=== PATIENT | male | born 1930 | race Caucasian/White ===

== ENCOUNTER 2016-07-29 17:21 | Inpatient (IN) ==
[2016-07-29] MEDS ORDERED: ONDANSETRON 4 MG/2 ML VIAL IV STA (17:48)
[2016-07-29] MEDS ORDERED: ONDANSETRON 4 MG/2 ML VIAL ONE (17:50)
--- NOTE | 2016-07-29 17:52 | EKG Report ---
Stationary ECG Study [facility] Test Date: 07/29/2016 5:53:09 PM Pat Name: EARLENE HAMILTON Department: Room: Gender: M Endocrinologist: : 1930 Requested by: Gerardo Ibrahim Order Number: [id number] Reading MD: SAIRA PADRON Intervals [place] Rate: 109 P: 57 [place]: 140 QRS: 74 QRSD: 94 T: 72 QT: 298 QTc: 362 Interpretive Statements SINUS TACHYCARDIA WITH OCCASIONAL SUPRAVENTRICULAR PREMATURE COMPLEXES NONSPECIFIC T-WAVE ABNORMALITY ABNORMAL RHYTHM ECG Electronically Signed On 08-02-16 08:14:16 CDT by SAIRA PADRON [email or web address]
--- NOTE | 2016-07-29 18:02 | Emergency Department Note ---
Loreta Adkins Hilary, am scribing for, and in the presence of, Gerardo Baron MD 17:55. Tod Adkins Charles R, MD, personally performed the services described in this documentation, ascribed by Harika Kan in my presence, and it is both accurate and complete [id number] . Arrival - Arrival Chief Complaint: Non-Specific Stated Complaint: Low Platelets ED Nursing Triage Note: Transfer from [facility] for low platelets and flu s/s x 4- 5 days Mode of Arrival: Stretcher Limitations: No Limitations Source: Patient, RN Notes Reviewed Time Seen by Provider: 07/29/16 17:39 - History of Present Illness HPI Narrative: Pt is a 85 y/o white male brought to the ED via EMS from [facility] for c/o body aches which onset 6 days ago. Pt confirms diarrhea, vomiting and weakness but denies SOB, or Chest pain. [facility] reports he has low platelets. Pt believes he has the flu and no other complaints or problems stated in the ED. Onset (ago): day(s) Allergies/Adverse Reactions: Allergies Allergy/AdvReac Type Severity Reaction Status Date / Time No Known Allergies Allergy Verified 03/17/16 06:27 Home Medications: Home Medications Medication Instructions Recorded Confirmed Type No Known Home Medications [No 03/15/16 03/17/16 History Known Home Medications] Review of System - Review of System 12 point system: reviewed and no additional remarkable complaints except as stated - Review of System Constitutional: Present: fever (low fever), weakness (body aches) Respiratory: Absent: respiratory distress Cardiovascular: Absent: chest pain Gastrointestinal: Present: nausea, vomiting, diarrhea. 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, glasses) Endocrine: History of: Dyslipidemia (pt states he is not taking medication) Respiratory: History of: Bronchitis (chronic), Obstructive Sleep Apnea (cpap) Gastrointestinal: History of: GERD Musculoskeletal: History of: Musculoskeletal Problems (degenerative arthritis) Other: History of: Cancer (skin cancer face) No history of: Anesthesia Reactions - Surgical History HEENT Surgeries: Surgical HX of: Eye Surgery (COS) Abdominal Surgeries: Surgical HX of: Cholecystectomy (05/02/15), Colonoscopy, EGD Orthopedic Surgeries: Surgical HX of;: Orthopedic Surgery (carpal tunnel bilateral), Total Hip Replacement (right 2007) - Family History Family History: Reports;: Family Heart Disease (father) - Social History Smoking Status: Never smoker Frequency of Alcohol Use: None Type of Drug Use: None Exam Vital Signs: Vital Signs Temperature 99.9 F H 07/29/16 17:29 Pulse Rate 106 H 07/29/16 18:30 Respiratory Rate 27 H 07/29/16 18:00 Blood Pressure 112/62 07/29/16 18:30 O2 Sat by Pulse Oximetry 94 L 07/29/16 18:30 - General General appearance: alert, in no apparent distress, other (Ill appearing male) - Head Head exam: Present: atraumatic, normocephalic - Eye Eye exam: Present: normal appearance, PERRL, EOMI, nystagmus (slight nystagmus) - ENT ENT exam: Present: mucous membranes moist, TM's normal bilaterally, other (Oral thrush on his top palate and tongue). Absent: mucous membranes dry - Neck Neck exam: Present: full ROM, trachea midline. Absent: tenderness - Chest Chest inspection: Present: symmetric chest wall rise. Absent: tenderness - Respiratory Respiratory exam: Present: normal lung sounds bilaterally. Absent: respiratory distress - Cardiovascular Cardiovascular exam: Present: normal rhythm, tachycardia, normal heart sounds - Rectal Exam Rectal exam: Present: heme (-) stool - Extremities Exam Extremities exam: Present: full ROM. Absent: tenderness - Back Exam Back exam: Present: full ROM. Absent: tenderness - Neurological Exam Neurological exam: Present: alert, oriented X3, CN II-XII intact. Absent: motor sensory deficit - Psychiatric Psychiatric exam: Present: normal affect, normal mood - Skin Skin exam: Present: warm, dry, intact, normal color. Absent: rash Course - Consultations Consultation #1: Hospitalist will admit patient Time: 18:01 Results - Labs CBC & BMP: 07/29/16 16:01 07/29/16 16:01 Lab Results: I have reviewed the patients labs Labs: All labs reviewed from previous ER Critical Care Time Critical Care Time: Yes Total Critical Care Time: 60 Disposition Clinical Impression: Fever, Toxoplasma chorioretinitis, left, Acid reflux, Hyponatremia, Oral thrush , Fatigue, Nausea & vomiting, Sepsis, Hypotension, Thrombocytopenia, Acute ITP, Flulike illness, Left bibasilar pneumonia, Strep pharyngitis Case discussed with: patient Disposition: Still a Patient Condition: Guarded Time of Disposition: 18:00
--- NOTE | 2016-07-29 18:10 | XRay Report ---
History: Fever and weakness Date: 07/29/2016 Study: Chest x-ray AP portable Comparison exam: November 21, 2015 chest x-ray The cardiomediastinal silhouette is unchanged. The pulmonary vasculature is not engorged. There is mild patchy pneumonia in the left lung base. The lungs are otherwise generally clear. There is no layering pleural effusion. The osseous structures are unchanged. Impression: Left basilar pneumonia PROCEDURE INTERPRETED AT [facility] DEPARTMENT OF RADIOLOGY Final Report Signed by: Dr. Meseret Moya
[2016-07-29] MEDS ORDERED: cefTRIAXone 1,000 MG in SODIUM CHLORIDE 0.9% 100 ML IV STA (18:21)
[2016-07-29] MEDS ORDERED: cefTRIAXone 1,000 MG VIAL ONE (18:22)
[2016-07-29] MEDS ORDERED: SODIUM CHLORIDE 0.9% 100 ML IV ONE (18:23)
[2016-07-29 18:27] LABS: Basophils % 0.1 % (0.0-0.8); Hematocrit 38.7 VOL% (42.0-52.0); Hemoglobin 13.2 GM/DL (14.0-18.0); Immature Granulocytes % 1.1 %; Immature Granulocytes Absolute 0.08 #; Lymphocytes # 0.6 10*3/uL (1.4-4.0); Lymphocytes % 8.6 % (21.2-54.2); Mean Corpuscular HGB Conc 34.1 GM/DL (32-36); Mean Corpuscular Hemoglobin 32 PG (27-34); Mean Corpuscular Volume 92.8 FL (87-102); Monocytes # 0.1 10*3/uL (0.11-0.8); Monocytes % 1.6 % (1.7-12.7); Neutrophils # 6.6 10*3/uL (1.4-7.4); Neutrophils % 88.6 % (38.7-73.9); Red Blood Count 4.17 MC/CUMM (3.8-5.5); Red Cell Distribution Width 13.2 % (9.3-17.3); White Blood Count 7.4 T/CUMM (4-12)
[2016-07-29 18:33] LABS: Platelet Count 28 T/CUMM (130-400)
[2016-07-29 18:35] LABS: Apearance,Urine Slightly Hazy (Clear); Bilirubin,Urine Negative (Negative); Blood, Urine Small mg/dL (Negative); Glucose,Urine (UA) Negative (Negative); Granular Casts,Urine 3 /LPF (0-1); Hyaline Casts,Urine 1 /LPF (0-3); Ketones,Urine 5 mg/dL (Negative); Mucus,Urine Occasional /LPF (Occasional); Nitrite,Urine Negative (Negative); Protein,Urine 30 MG/DL; RBC,Urine 1 /HPF (0-4); Squamous Epithelial Cell,Urine Occasional /HPF (0-10); Urine Color Yellow (Yellow); Urine Specific Gravity 1.014 (1.001-1.035); Urine Urobilinogen < 2.0 EU/DL (0.2-1.0); WBC,Urine 1 /HPF (0-6)
--- NOTE | 2016-07-29 18:36 | Hospitalist History & Physical ---
Assessment and Plan (1) Toxoplasma chorioretinitis, left Status: Chronic Current Visit: Yes (2) Acid reflux Status: Chronic Current Visit: Yes (3) Hyponatremia Status: Acute Current Visit: Yes (4) Candidiasis of mouth Status: Acute Current Visit: Yes (5) Fatigue Status: Acute Current Visit: Yes (6) Hypotension Status: Acute Current Visit: Yes (7) Thrombocytopenia Status: Acute Assessment and plan: Our plan for this patient will be admission for the to the ICU at least overnight. My concern is that he is septic. His chest x-ray consistent with a left basilar pneumonia. We will repeat labs in the morning. My suspicion is the thrombocytopenia is associated with his Bactrim use. He has gastroenteritis type symptoms we will do stool cultures for that. Will treat with IV antibiotics. If his platelets do not increase then I would recommend that heme onc be consulted in the morning. Patient has a bump lactic acid level of 2.9 we will repeat that in 6 hours. Patient found to be positive for strep. Patient will receive a Bicillin shot in the emergency room. He patient received a dose of Rocephin in the emergency room and I am starting him on Levaquin and continuing the Rocephin. We will also get Dr. stover to see the patient while he is here. Patient has a toxoplasmosis infection of his eye. Current Visit: Yes (8) Pneumonia Status: Acute Current Visit: Yes History of Present Illness Chief complaint: "I feel like shit" History of present illness: Mr. Tirado is a 85 year old male with past medical history significant for toxoplasmosis of left eye hiatal hernia and reflux he has been receiving Bactrim for 3 weeks. Patient reports that he has had fever. He has had bad diarrhea for the past 3 days. He has had no energy. [place] to be thrombocytopenic. He was sent here for further evaluation. Patient reported that he felt like he had the flu with weakness and body aches. I was consulted to admit him to the emergency room. 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, glasses) Endocrine: History of: Dyslipidemia (pt states he is not taking medication) Respiratory: History of: Bronchitis (chronic), Obstructive Sleep Apnea (cpap) Gastrointestinal: History of: GERD Musculoskeletal: History of: Musculoskeletal Problems (degenerative arthritis) Other: History of: Cancer (skin cancer face) No history of: Anesthesia Reactions - Surgical History HEENT Surgeries: Surgical HX of: Eye Surgery (COS) Abdominal Surgeries: Surgical HX of: Cholecystectomy (05/02/15), Colonoscopy, EGD Orthopedic Surgeries: Surgical HX of;: Orthopedic Surgery (carpal tunnel bilateral), Total Hip Replacement (right 2006) - Family History Family History: Reports;: Family Heart Disease (father) - Social History Smoking Status: Never smoker Frequency of Alcohol Use: None Type of Drug Use: None 12 point system: reviewed and no additional remarkable complaints except as stated Exam - Constitutional Vitals: Period Temp Pulse Resp BP Sys/Hester Pulse Ox Last 24 Hr 99.9 F-99.9 F 106-113 20-27 113-114/58-76 95-97 General appearance: no acute distress - Head Head exam: Present: normocephalic, atraumatic - Eye Eye exam: Present: EOMI Pupils: Present: VERNA - ENT ENT exam: Present: other (Some oral thrush appreciated) - Neck Neck exam: Present: normal inspection - Respiratory Respiratory exam: Present: clear to auscultation bilaterally - Cardiovascular Cardiovascular exam: Present: tachycardia - GI/Abdominal GI/Abdominal exam: Present: normal bowel sounds - Extremities Exam Extremities exam: Present: normal inspection - Back Exam Back exam: Present: normal inspection - Neurological Exam Neurological exam: Present: alert, oriented X3 - Psychiatric Psychiatric exam: Present: normal affect - Skin Skin exam: Present: normal color Results - Labs CBC & BMP: 07/29/16 16:01 07/29/16 16:01 Labs: Labs from outside facility white count 9.3 hemoglobin 14.4 hematocrit 42.4 platelets 25 BUN 26 calcium 8.1 creatinine 1.24 carbon dioxide 24 glucose 139 potassium 4.1 sodium 124 chloride 95 urinalysis was cloudy dark yellow negative leukocyte esterase negative nitrites
[2016-07-29] MEDS ORDERED: ALBUTEROL 2.5 MG/3 ML NEB RESP TX PRN ×2 (18:43)
[2016-07-29] MEDS ORDERED: ONDANSETRON 4 MG/2 ML VIAL IV PRN (18:43)
[2016-07-29 18:47] LABS: Lactic Acid 2.9 MMOL/L (0.4-2.0)
[2016-07-29 18:52] LABS: Albumin 2.5 G/DL (3.4-5.0); Bilirubin,Total 0.9 MG/DL (0.2-1.0); Calcium 7.2 MG/DL (8.5-10.1); Magnesium 2.2 MG/DL (1.8-2.4); Osmolality,Calculated 270.4 MOS/KG (273-304); Potassium 3.8 MMOL/L (3.5-5.1); Total Protein 5.1 G/DL (6.4-8.3)
[2016-07-29] MEDS ORDERED: PENICILLIN G BENZATHINE 1,200,000 UNIT/2 ML SYRINGE IM STA (19:20)
[2016-07-29 19:30] LABS: Protein/Creatinine Ratio,Urine 0.9 RATIO
[2016-07-29] MEDS ORDERED: LEVOFLOXACIN INJ 150 ML IV ONE (20:06)
[2016-07-29] MEDS ORDERED: PENICILLIN G BENZATHINE 1,200,000 UNIT/2 ML SYRINGE IM ONE (20:07)
[2016-07-29] MEDS: SODIUM CHLORIDE 0.9% 1,000 ML IV SCH (20:09)
[2016-07-29] MEDS: LEVOFLOXACIN INJ 750 MG in PREMIX 1 EACH IV SCH (20:13)
[2016-07-29 20:55] LABS: Band Neutrophils 2 % (0-10); Lymphocytes 5 % (20-55); Segmented Neutrophils 91 % (50-85); Total Cells Counted 100
[2016-07-29 20:56] LABS: Platelet Estimate Decreased
[2016-07-29] MEDS ORDERED: PANTOPRAZOLE 40 MG VIAL IV SCH (21:00)
[2016-07-29] MEDS: ALBUTEROL/IPRATROPIUM 3 ML NEB RESP TX SCH (21:13)
[2016-07-29] MEDS ORDERED: NYSTATIN 500,000 UNIT/5 ML UDCUP ONE (21:15)
[2016-07-29] MEDS ORDERED: PANTOPRAZOLE 40 MG VIAL IV ONE (21:15)
[2016-07-29] MEDS: NYSTATIN 500,000 UNIT/5 ML UDCUP SWISH/SWAL SCH (21:20)
[2016-07-30] MEDS: ALBUTEROL/IPRATROPIUM 3 ML NEB RESP TX SCH ×4 (00:37→19:14)
[2016-07-30] MEDS: SODIUM CHLORIDE 0.9% 1,000 ML IV SCH ×3 (05:45→23:34)
[2016-07-30 06:18] LABS: Basophils % 0.2 % (0.0-0.8); Hematocrit 36.4 VOL% (42.0-52.0); Hemoglobin 12.5 GM/DL (14.0-18.0); Immature Granulocytes Absolute 0.06 #; Lymphocytes # 0.5 10*3/uL (1.4-4.0); Lymphocytes % 8.3 % (21.2-54.2); Mean Corpuscular HGB Conc 34.3 GM/DL (32-36); Mean Corpuscular Hemoglobin 32 PG (27-34); Mean Corpuscular Volume 93.8 FL (87-102); Monocytes # 0.1 10*3/uL (0.11-0.8); Monocytes % 2.1 % (1.7-12.7); Neutrophils # 5.5 10*3/uL (1.4-7.4); Neutrophils % 88.4 % (38.7-73.9); Red Blood Count 3.88 MC/CUMM (3.8-5.5); Red Cell Distribution Width 13.5 % (9.3-17.3); White Blood Count 6.3 T/CUMM (4-12)
[2016-07-30 06:29] LABS: Platelet Count 28 T/CUMM (130-400)
[2016-07-30 06:43] LABS: Band Neutrophils 48 % (0-10); Hypochromasia 1+; Lymphocytes 4 % (20-55); Myelocytes 1 %; Platelet Estimate Decreased; Segmented Neutrophils 46 % (50-85); Total Cells Counted 100
[2016-07-30] MEDS ORDERED: NYSTATIN 500,000 UNIT/5 ML UDCUP ONE (09:56)
[2016-07-30] MEDS ORDERED: PANTOPRAZOLE 40 MG TABLET PO ONE (09:57)
[2016-07-30] MEDS ORDERED: TAMSULOSIN 0.4 MG CAPSULE PO ONE (09:57)
[2016-07-30] MEDS: PANTOPRAZOLE 40 MG TABLET PO SCH (09:59)
[2016-07-30] MEDS: TAMSULOSIN 0.4 MG CAPSULE PO SCH (09:59)
[2016-07-30] MEDS: NYSTATIN 500,000 UNIT/5 ML UDCUP SWISH/SWAL SCH ×4 (10:00→21:43)
[2016-07-30 11:28] LABS: Albumin 2.3 G/DL (3.4-5.0); Bilirubin,Total 0.8 MG/DL (0.2-1.0); Osmolality,Calculated 272.4 MOS/KG (273-304); Potassium 3.1 MMOL/L (3.5-5.1); Total Protein 4.8 G/DL (6.4-8.3)
--- NOTE | 2016-07-30 11:50 | Hospitalist Progress Note ---
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 Current Visit: Yes (2) Sepsis Status: Acute Assessment and plan: Is presently being treated with intravenous normal saline, intravenous levofloxacin, and intravenous ceftriaxone. His blood pressure is 130/63 and heart rate 92/min. Current Visit: Yes (3) Thrombocytopenia Status: Acute Assessment and plan: His platelet count is 28,000. Hematology has been consulted. Current Visit: Yes (4) Pneumonia Status: Acute Assessment and plan: See above. Current Visit: Yes Qualifiers: Pneumonia type: due to unspecified organism Hospitalist: Subjective Interval history: Mr. Tirado was admitted to the hospital last night with pneumonia, sepsis, and thrombocytopenia. He has a previously known history of thrombocytopenia. On admission his platelet count was 28,000. He was treated during the night with intravenous normal saline,Intravenous levofloxacin, and intravenous ceftriaxone. Hematology has been consulted for assistance in management of his thrombocytopenia. Exam - Constitutional Vitals: Period Temp Pulse Resp BP Sys/Hester Pulse Ox Last 24 Hr 92-113 18-30 104-130/55-82 91-100 General appearance: no acute distress - Head Head exam: Present: normal inspection, normocephalic - Eye Eye exam: Present: EOMI Pupils: Present: VERNA - Neck Neck exam: Present: normal inspection - Respiratory Respiratory exam: Present: rhonchi - Cardiovascular Cardiovascular exam: Present: regular rate and rhythm - GI/Abdominal GI/Abdominal exam: Present: normal bowel sounds, soft - Extremities Exam Extremities exam: Present: normal inspection - Neurological Exam Neurological exam: Present: alert, oriented X3 - Psychiatric Psychiatric exam: Present: normal affect, normal mood - Skin Skin exam: Present: normal color, warm, dry Results - Labs CBC & BMP: 07/30/16 03:21 07/30/16 10:20 Quality Measures - VTE Contraindication to Pharmacological VTE Prophylaxis: Thrombocytopenia
[2016-07-30 11:58] LABS: Hematocrit 37.7 VOL% (42.0-52.0); Hemoglobin 12.9 GM/DL (14.0-18.0); Immature Granulocytes % 1.1 %; Immature Granulocytes Absolute 0.06 #; Lymphocytes # 0.4 10*3/uL (1.4-4.0); Lymphocytes % 7.8 % (21.2-54.2); Mean Corpuscular HGB Conc 34.2 GM/DL (32-36); Mean Corpuscular Hemoglobin 32 PG (27-34); Mean Corpuscular Volume 92.2 FL (87-102); Mean Platelet Volume 10.5 FL (9.6-12.0); Monocytes # 0.1 10*3/uL (0.11-0.8); Monocytes % 1.8 % (1.7-12.7); Neutrophils # 4.9 10*3/uL (1.4-7.4); Neutrophils % 89.3 % (38.7-73.9); Red Blood Count 4.09 MC/CUMM (3.8-5.5); Red Cell Distribution Width 13.5 % (9.3-17.3); White Blood Count 5.5 T/CUMM (4-12)
[2016-07-30 12:08] LABS: Platelet Count 30 T/CUMM (130-400)
[2016-07-30 12:24] LABS: Band Neutrophils 5 % (0-10); Lymphocytes 3 % (20-55); Segmented Neutrophils 91 % (50-85); Total Cells Counted 100
[2016-07-30 12:27] LABS: Hypochromasia 1+; Microcytosis Slight; Platelet Estimate Decreased
--- NOTE | 2016-07-30 13:19 | Anesthesia Post-Op ---
Anesthesia Post OP - Post Ansesthetic Evaluation Patient seen in post op: Yes Resp: within normal limits CV: within normal limits Mental: within normal limits Temp: within normal limits [id number]: within normal limits Nausea and Vomiting: within normal limits Pain: within normal limits
[2016-07-30 16:06] LABS: Amorphous Crystals,Urine Occasional /HPF (Few); Apearance,Urine CLOUDY (Clear); Bilirubin,Urine Negative (Negative); Blood, Urine Moderate mg/dL (Negative); Glucose,Urine (UA) Negative (Negative); Ketones,Urine 5 mg/dL (Negative); Mucus,Urine Occasional /LPF (Occasional); Nitrite,Urine Negative (Negative); Protein,Urine 30 MG/DL; RBC,Urine 40 /HPF (0-4); Urine Color Yellow (Yellow); Urine Specific Gravity 1.011 (1.001-1.035); Urine Urobilinogen < 2.0 EU/DL (0.2-1.0); WBC,Urine 3 /HPF (0-6)
[2016-07-30] MEDS ORDERED: ZALEPLON 5 MG CAPSULE PO PRN (19:22)
[2016-07-30] MEDS: LEVOFLOXACIN INJ 750 MG in PREMIX 1 EACH IV SCH (20:29)
[2016-07-30] MEDS: ACETAMINOPHEN 325 MG TABLET PO PRN (20:32)
[2016-07-30] MEDS: FAMOTIDINE 20 MG TABLET PO SCH (21:43)
[2016-07-30] MEDS: cefTRIAXone 1,000 MG in SODIUM CHLORIDE 0.9% 100 ML IV SCH (21:43)
[2016-07-30 22:03] LABS: INR 1.4; PT Patient Result 14.6 SECS
[2016-07-30 22:05] LABS: Partial Thromboplastin Time 46.4 SECS (0-40)
[2016-07-30] MEDS ORDERED: METOPROLOL SUCCINATE XL 50 MG TABLET PO ONE (23:22)
[2016-07-31] MEDS: ALBUTEROL/IPRATROPIUM 3 ML NEB RESP TX SCH ×4 (01:31→19:47)
[2016-07-31] MEDS: SODIUM CHLORIDE 0.9% 1,000 ML IV SCH ×4 (04:26→17:26)
[2016-07-31 04:40] LABS: Hematocrit 34.6 VOL% (42.0-52.0); Hemoglobin 11.8 GM/DL (14.0-18.0); Immature Granulocytes % 1.5 %; Immature Granulocytes Absolute 0.05 #; Lymphocytes # 0.3 10*3/uL (1.4-4.0); Lymphocytes % 8.1 % (21.2-54.2); Mean Corpuscular HGB Conc 34.1 GM/DL (32-36); Mean Corpuscular Hemoglobin 31 PG (27-34); Mean Corpuscular Volume 91.3 FL (87-102); Mean Platelet Volume 10.7 FL (9.6-12.0); Monocytes # 0.1 10*3/uL (0.11-0.8); Monocytes % 2.3 % (1.7-12.7); Neutrophils % 88.1 % (38.7-73.9); Red Blood Count 3.79 MC/CUMM (3.8-5.5); Red Cell Distribution Width 13.6 % (9.3-17.3); White Blood Count 3.4 T/CUMM (4-12)
[2016-07-31 04:58] LABS: Platelet Count 17 T/CUMM (130-400)
[2016-07-31 05:10] LABS: Calcium 7.1 MG/DL (8.5-10.1); Osmolality,Calculated 269.2 MOS/KG (273-304); Potassium 3.2 MMOL/L (3.5-5.1)
[2016-07-31] MEDS ORDERED: MAGNESIUM SULF RIDER 4 GM in PREMIX 1 EACH IV PRN (05:30)
[2016-07-31] MEDS ORDERED: MAGNESIUM SULF RIDER 2 GM in PREMIX 1 EACH IV PRN (05:30)
[2016-07-31 05:33] LABS: Band Neutrophils 6 % (0-10); Burr Cells Slight; Hypochromasia Slight; Lymphocytes 5 % (20-55); Platelet Estimate Decreased; Segmented Neutrophils 89 % (50-85); Total Cells Counted 100
[2016-07-31 05:34] LABS: Microcytosis Slight
[2016-07-31] MEDS: POTASSIUM CHLORIDE RIDER 10 MEQ in PREMIX 1 EACH IV PRN ×7 (05:53→23:29)
--- NOTE | 2016-07-31 07:25 | EKG Report ---
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
[2016-07-31 09:02] LABS: INR 1.3; PT Patient Result 14.2 SECS
[2016-07-31 09:11] LABS: Partial Thromboplastin Time 48.7 SECS (0-40)
[2016-07-31] MEDS: NYSTATIN 500,000 UNIT/5 ML UDCUP SWISH/SWAL SCH ×4 (09:18→20:07)
[2016-07-31] MEDS: PANTOPRAZOLE 40 MG TABLET PO SCH (09:18)
[2016-07-31] MEDS: TAMSULOSIN 0.4 MG CAPSULE PO SCH (09:18)
[2016-07-31] MEDS: METOPROLOL SUCCINATE XL 25 MG TABLET PO SCH ×2 (09:18→21:43)
[2016-07-31 10:12] LABS: Hematocrit 36.7 VOL% (42.0-52.0); Hemoglobin 12.2 GM/DL (14.0-18.0); Immature Granulocytes % 1.2 %; Immature Granulocytes Absolute 0.04 #; Lymphocytes # 0.3 10*3/uL (1.4-4.0); Lymphocytes % 9.8 % (21.2-54.2); Mean Corpuscular HGB Conc 33.2 GM/DL (32-36); Mean Corpuscular Hemoglobin 32 PG (27-34); Mean Corpuscular Volume 95.1 FL (87-102); Monocytes # 0.1 10*3/uL (0.11-0.8); Monocytes % 2.8 % (1.7-12.7); Neutrophils # 2.8 10*3/uL (1.4-7.4); Neutrophils % 86.2 % (38.7-73.9); Red Blood Count 3.86 MC/CUMM (3.8-5.5); Red Cell Distribution Width 13.9 % (9.3-17.3); White Blood Count 3.3 T/CUMM (4-12)
[2016-07-31 10:15] LABS: Platelet Count 17 T/CUMM (130-400)
[2016-07-31 10:35] LABS: Band Neutrophils 8 % (0-10); Lymphocytes 4 % (20-55); Platelet Estimate Decreased; Segmented Neutrophils 86 % (50-85); Total Cells Counted 100
[2016-07-31 10:36] LABS: Hypochromasia Slight; Microcytosis Slight
--- NOTE | 2016-07-31 10:37 | Oncology Consult Note ---
Assessment and Plan (1) Thrombocytopenia Status: Acute Assessment and plan: Mr. Tirado is a 85 year old male with PMHx of toxoplasmosis of left eye and GERD admitted on 07/29 for fevers, low platelets, diarrhea, and shortness of breath for 1 week duration. Hematology consulted to evaluate thrombocytopenia. - suspect etiology either from sepsis or secondary to bactrim - on admission patient with fevers and Left shift with bands suggestive of significant infection - smear reviewed with no blast and no significant amount of schistocytes - fibrinogen not suggestive of DIC - folate, B12, HIV, and hep panel pending - will transfuse 1 unit platelet today to keep plat >20,000 if not bleeding and checking platelet count 1 hour post transfusion for an appropriate rise - agree with holding bactrim - suspect platelets will improve as pneumonia treated - will continue to follow. thank you for consult. Current Visit: Yes History of Present Illness Chief complaint: thrombocytopenia History of present illness: Mr. Tirado is a 85 year old male with PMHx of toxoplasmosis of left eye and GERD admitted on 07/29 for fevers, low platelets, diarrhea, and shortness of breath for 1 week duration. Hematology consulted to evaluate thrombocytopenia. Patient has been on bactrim for 3 weeks for toxoplasmosis. Patient denies bleeding. Denies prior low platelets. No alcohol abuse nor history of cirrhosis. Platelets have declined since admission from 28 to 17,000. Overall patient states feels much better since admission with IVF and antibiotics. States continues to have diarrhea though improved. No history of confusion. 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, glasses) Endocrine: History of: Dyslipidemia (pt states he is not taking medication) Respiratory: History of: Bronchitis (chronic), Obstructive Sleep Apnea (cpap) Gastrointestinal: History of: GERD Musculoskeletal: History of: Musculoskeletal Problems (degenerative arthritis) Other: History of: Cancer (skin cancer face) No history of: Anesthesia Reactions - Surgical History HEENT Surgeries: Surgical HX of: Eye Surgery (COS) Abdominal Surgeries: Surgical HX of: Cholecystectomy (05/02/15), Colonoscopy, EGD Orthopedic Surgeries: Surgical HX of;: Orthopedic Surgery (carpal tunnel bilateral), Total Hip Replacement (right 2007) - Family History Family History: Reports;: Family Heart Disease (father) - Social History Smoking Status: Never smoker Frequency of Alcohol Use: None Type of Drug Use: None - Constitutional Constitutional: Present: fatigue, fever(s), weakness. Absent: increased appetite - EENT Eye: Present: blurry vision - Cardiovascular Cardiovascular ROS IM: Absent: chest pain, edema - Respiratory Respiratory: Present: cough, dyspnea - Gastrointestinal Gastrointestinal: Present: diarrhea, loose stools. Absent: abdominal pain, melena, nausea, vomiting, jaundice - Musculoskeletal Musculoskeletal ROS: Absent: arthralgias, back pain - Neurological Neurological ROS: Absent: abnormal gait Exam - Constitutional Vitals: Period Temp Pulse Resp BP Sys/Hester Pulse Ox Last 24 Hr 98.8 F-101.4 F 92-140 14-33 102-146/55-104 90-100 General appearance: no acute distress - Eye Eye Exam: Present: EOMI - Respiratory Respiratory exam: Present: decreased breath sounds - Cardiovascular Cardiovascular exam: Present: RRR. Absent: systolic murmur - GI/Abdominal GI/Abdominal exam: Present: soft. Absent: ascites, distended, guarding, mass, tenderness - Extremities Exam Extremities exam: Absent: edema - Back Exam Back exam general: Absent: CVA tenderness (L) - Neurological Exam Neurological exam: Present: alert, oriented X3, CN II-XII intact - Skin Skin exam: Present: warm Results - Labs CBC & BMP: 07/31/16 08:43 07/31/16 03:57 Quality Measures - VTE Contraindication to Pharmacological VTE Prophylaxis: Thrombocytopenia
--- NOTE | 2016-07-31 11:23 | Hospitalist Progress Note ---
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 Current Visit: Yes (2) Sepsis Status: Acute Assessment and plan: Is presently being treated with intravenous normal saline, intravenous levofloxacin, and intravenous ceftriaxone. His blood pressure is 111/69 and heart rate 96. Current Visit: Yes (3) Thrombocytopenia Status: Acute Assessment and plan: His platelet count is 17,000 today. He will require transfusion of platelets. Current Visit: Yes (4) Pneumonia Status: Acute Assessment and plan: See above. Current Visit: Yes Qualifiers: Pneumonia type: due to unspecified organism Hospitalist: Subjective Interval history: Mr. Flynn was hospitalized 2 days ago with pneumonia, sepsis, and thrombocytopenia. Had a previously well known history of thrombocytopenia. On admission his platelet count was 28,000. He has been treated with intravenous normal saline, intravenous levofloxacin, and intravenous ceftriaxone. He was seen in consultation yesterdayby hematology. He was administered 1 unit platelet transfusion. He is stable today on the above medications. Exam - Constitutional Vitals: Period Temp Pulse Resp BP Sys/Hester Pulse Ox Last 24 Hr 98.8 F-101.4 F 92-140 14-33 102-146/55-104 90-100 General appearance: no acute distress - Head Head exam: Present: normal inspection, normocephalic - Eye Eye exam: Present: EOMI Pupils: Present: VERNA - Neck Neck exam: Present: normal inspection - Respiratory Respiratory exam: Present: clear to auscultation bilaterally - Cardiovascular Cardiovascular exam: Present: regular rate and rhythm - GI/Abdominal GI/Abdominal exam: Present: normal bowel sounds, other (Nontender with no palpable masses or hepatosplenomegaly.) - Extremities Exam Extremities exam: Present: normal inspection - Neurological Exam Neurological exam: Present: alert, oriented X3 - Psychiatric Psychiatric exam: Present: normal affect, normal mood - Skin Skin exam: Present: normal color, warm, dry Results - Labs CBC & BMP: 07/31/16 08:43 07/31/16 03:57 Quality Measures - VTE Contraindication to Pharmacological VTE Prophylaxis: Thrombocytopenia
[2016-07-31] MEDS ORDERED: SODIUM CHLORIDE 0.9% 250 ML IV PRN (11:26)
[2016-07-31 11:28] LABS: Folate 17.2 NG/ML (5.4-24.0); HIV Antigen/Antibody Result Nonreactive (Nonreactive); Hepatitis A Ab IgM Result Negative (Negative); Hepatitis B Core IgM Result Negative (Negative); Hepatitis B Surface Ag Quant < 0.10 Index; Hepatitis B Surface Ag Result Negative (Negative); Hepatitis C Virus Ab Quant 0.54 Index; Hepatitis C Virus Ab Result Negative (Negative); Vitamin B12 1190 PG/ML (211-911)
[2016-07-31 15:20] LABS: Hematocrit 34.1 VOL% (42.0-52.0); Hemoglobin 11.8 GM/DL (14.0-18.0); Immature Granulocytes % 3.3 %; Immature Granulocytes Absolute 0.09 #; Lymphocytes # 0.3 10*3/uL (1.4-4.0); Lymphocytes % 10.5 % (21.2-54.2); Mean Corpuscular HGB Conc 34.6 GM/DL (32-36); Mean Corpuscular Hemoglobin 32 PG (27-34); Mean Corpuscular Volume 91.9 FL (87-102); Monocytes # 0.1 10*3/uL (0.11-0.8); Monocytes % 2.2 % (1.7-12.7); Neutrophils # 2.3 10*3/uL (1.4-7.4); Red Blood Count 3.71 MC/CUMM (3.8-5.5); Red Cell Distribution Width 13.5 % (9.3-17.3); White Blood Count 2.8 T/CUMM (4-12)
[2016-07-31] MEDS: ACETAMINOPHEN 325 MG TABLET PO PRN ×2 (15:22→20:07)
[2016-07-31 15:28] LABS: Platelet Count 32 T/CUMM (130-400)
[2016-07-31] MEDS: LEVOFLOXACIN INJ 750 MG in PREMIX 1 EACH IV SCH (20:01)
[2016-07-31] MEDS: FAMOTIDINE 20 MG TABLET PO SCH (20:07)
[2016-07-31] MEDS: cefTRIAXone 1,000 MG in SODIUM CHLORIDE 0.9% 100 ML IV SCH (21:11)
[2016-08-01] MEDS: SODIUM CHLORIDE 0.9% 1,000 ML IV SCH ×5 (00:25→18:26)
[2016-08-01] MEDS: ALBUTEROL/IPRATROPIUM 3 ML NEB RESP TX SCH ×4 (01:43→19:55)
[2016-08-01] MEDS: ACETAMINOPHEN 325 MG TABLET PO PRN ×2 (05:21→17:41)
[2016-08-01 06:27] LABS: Basophils % 0.3 % (0.0-0.8); Hematocrit 34.9 VOL% (42.0-52.0); Hemoglobin 11.7 GM/DL (14.0-18.0); Immature Granulocytes % 2.2 %; Immature Granulocytes Absolute 0.07 #; Lymphocytes # 0.3 10*3/uL (1.4-4.0); Lymphocytes % 8.3 % (21.2-54.2); Mean Corpuscular HGB Conc 33.5 GM/DL (32-36); Mean Corpuscular Hemoglobin 32 PG (27-34); Mean Corpuscular Volume 94.3 FL (87-102); Mean Platelet Volume 11.6 FL (9.6-12.0); Monocytes # 0.1 10*3/uL (0.11-0.8); Monocytes % 1.8 % (1.7-12.7); Neutrophils # 2.8 10*3/uL (1.4-7.4); Neutrophils % 87.4 % (38.7-73.9); Red Cell Distribution Width 13.7 % (9.3-17.3); White Blood Count 3.3 T/CUMM (4-12)
[2016-08-01 06:29] LABS: Platelet Count 23 T/CUMM (130-400)
[2016-08-01 07:07] LABS: Calcium 6.6 MG/DL (8.5-10.1); Osmolality,Calculated 263.8 MOS/KG (273-304); Potassium 3.8 MMOL/L (3.5-5.1)
[2016-08-01 07:26] LABS: Band Neutrophils 11 % (0-10); Hypochromasia 1+; Lymphocytes 2 % (20-55); Platelet Estimate Decreased; Segmented Neutrophils 86 % (50-85); Total Cells Counted 100
[2016-08-01 07:27] LABS: Burr Cells Slight; Microcytosis Slight; Ovalocytes Slight
[2016-08-01] MEDS: TAMSULOSIN 0.4 MG CAPSULE PO SCH (09:47)
[2016-08-01] MEDS: NYSTATIN 500,000 UNIT/5 ML UDCUP SWISH/SWAL SCH ×4 (09:47→20:49)
[2016-08-01] MEDS: PANTOPRAZOLE 40 MG TABLET PO SCH (09:47)
[2016-08-01] MEDS: METOPROLOL SUCCINATE XL 25 MG TABLET PO SCH ×2 (09:47→20:55)
--- NOTE | 2016-08-01 10:39 | Oncology Progress Note ---
Assessment and Plan (1) Thrombocytopenia Status: Acute Assessment and plan: - likely etiology multifactorial mostly from sepsis as well as bactrim - recommend transfusing platelets PRN to keep plat > 20 if no bleeding and > 50 if bleeding - on admission smear with Left shift and no blast and no significant amount of schistocytes - fibrinogen not suggestive of DIC - folate, B12, HIV, and hep panel normal - ok rise of platelets with transfusion at 1 hour with a later decline suggestive of infectious etiology rather than ITP/TTP - suspect platelets will improve as pneumonia treated Current Visit: Yes Oncology Subjective PN Interval history: 85 year old male with PMHx of toxoplasmosis of left eye and GERD admitted on for fevers, low platelets, diarrhea, and shortness of breath for 1 week duration. Overnight episodes of confusion and poor sleep. Continuing to spike high grade temps. No bleeding. Tolerated transfusion well. No abdominal pain. No N//V/D. Today more oriented. Overall states feels better since admission. Exam - Constitutional Vitals: Period Temp Pulse Resp BP Sys/Hester Pulse Ox Last 24 Hr 97.8 F-102.0 F 84-121 17-32 91-138/49-83 90-99 General appearance: no acute distress - Eye Eye Exam: Present: EOMI - Respiratory Respiratory exam: Present: decreased breath sounds - Cardiovascular Cardiovascular exam: Present: RRR - GI/Abdominal GI/Abdominal exam: Present: soft. Absent: ascites, distended, mass, tenderness - Extremities Exam Extremities exam: Absent: edema - Neurological Exam Neurological exam: Present: alert - Skin Skin exam: Present: warm Results - Labs CBC & BMP: 08/01/16 04:28 08/01/16 04:28 Quality Measures - VTE Contraindication to Pharmacological VTE Prophylaxis: Thrombocytopenia
[2016-08-01] MEDS ORDERED: ZIPRASIDONE 20 MG/1 ML VIAL IM PRN (11:42)
--- NOTE | 2016-08-01 13:54 | Hospitalist Progress Note ---
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 Current Visit: Yes (2) Sepsis Status: Acute Assessment and plan: He is presently being treated with intravenous normal saline, intravenous levofloxacin, and intravenous ceftriaxone. His blood pressure is 124/73 and heart rate 113 Current Visit: Yes (3) Thrombocytopenia Status: Acute Assessment and plan: His platelet count is 23,000 today. He is being followed by hematology. Current Visit: Yes (4) Pneumonia Status: Acute Assessment and plan: See above. He is being treated with intravenous levofloxacin and ceftriaxone. Current Visit: Yes Qualifiers: Pneumonia type: due to unspecified organism (5) Encephalopathy Status: Acute Assessment and plan: Most probably has environmental encephalopathy from a combination of sepsis and the intensive care unit. His agitation is well controlled with Geodon. Current Visit: Yes Hospitalist: Subjective Interval history: Mr. Milan was hospitalized here 3 days ago with pneumonia, sepsis, and thrombocytopenia. He had a previously well known history of chronic thrombocytopenia. On admission his platelet count was 28,000. He has been treated with intravenous normal saline, intravenous levofloxacin, and intravenous ceftriaxone. Last night he was extremely confused and combative. He has been treated today with Geodon with significant sedation. He has been seen in consultation byDr. Killian of hematology. Exam - Constitutional Vitals: Period Temp Pulse Resp BP Sys/Hester Pulse Ox Last 24 Hr 97.6 F-102.0 F 86-121 17-32 96-138/49-79 90-99 General appearance: no acute distress - Head Head exam: Present: normal inspection, normocephalic - Eye Eye exam: Present: EOMI Pupils: Present: VERNA - Neck Neck exam: Present: normal inspection - Respiratory Respiratory exam: Present: clear to auscultation bilaterally - Cardiovascular Cardiovascular exam: Present: regular rate and rhythm - GI/Abdominal GI/Abdominal exam: Present: normal bowel sounds, soft, other (Nontender with no palpable masses or hepatosplenomegaly.) - Extremities Exam Extremities exam: Present: normal inspection - Neurological Exam Neurological exam: Present: other (Sedated) - Skin Skin exam: Present: normal color, warm, dry Results - Labs CBC & BMP: 08/01/16 04:28 08/01/16 04:28 Quality Measures - VTE Contraindication to Pharmacological VTE Prophylaxis: Thrombocytopenia
[2016-08-01] MEDS: LEVOFLOXACIN INJ 750 MG in PREMIX 1 EACH IV SCH (20:28)
[2016-08-01] MEDS: FAMOTIDINE 20 MG TABLET PO SCH (20:47)
[2016-08-01] MEDS: cefTRIAXone 1,000 MG in SODIUM CHLORIDE 0.9% 100 ML IV SCH (20:47)
[2016-08-02] MEDS: ALBUTEROL/IPRATROPIUM 3 ML NEB RESP TX SCH ×4 (00:50→21:26)
[2016-08-02] MEDS: ACETAMINOPHEN 325 MG TABLET PO PRN (02:30)
[2016-08-02] MEDS: SODIUM CHLORIDE 0.9% 1,000 ML IV SCH ×3 (02:30→19:33)
[2016-08-02 04:55] LABS: Hemoglobin 10.5 GM/DL (14.0-18.0); Immature Granulocytes Absolute 0.04 #; Lymphocytes # 0.6 10*3/uL (1.4-4.0); Lymphocytes % 14.7 % (21.2-54.2); Mean Corpuscular HGB Conc 33.9 GM/DL (32-36); Mean Corpuscular Hemoglobin 31 PG (27-34); Mean Corpuscular Volume 92.3 FL (87-102); Mean Platelet Volume 10.1 FL (9.6-12.0); Monocytes # 0.1 10*3/uL (0.11-0.8); Monocytes % 1.3 % (1.7-12.7); Neutrophils # 3.2 10*3/uL (1.4-7.4); Red Blood Count 3.36 MC/CUMM (3.8-5.5); Red Cell Distribution Width 13.9 % (9.3-17.3); White Blood Count 3.9 T/CUMM (4-12)
[2016-08-02 05:05] LABS: Platelet Count 18 T/CUMM (130-400)
[2016-08-02 05:28] LABS: Calcium 6.1 MG/DL (8.5-10.1); Osmolality,Calculated 270.4 MOS/KG (273-304); Potassium 3.5 MMOL/L (3.5-5.1)
[2016-08-02 05:49] LABS: Band Neutrophils 4 % (0-10); Hypochromasia Slight; Lymphocytes 11 % (20-55); Segmented Neutrophils 83 % (50-85); Total Cells Counted 100
[2016-08-02 05:50] LABS: Microcytosis Slight; Platelet Estimate Decreased
[2016-08-02] MEDS: TAMSULOSIN 0.4 MG CAPSULE PO SCH (09:02)
[2016-08-02] MEDS: NYSTATIN 500,000 UNIT/5 ML UDCUP SWISH/SWAL SCH ×4 (09:02→20:52)
[2016-08-02] MEDS: PANTOPRAZOLE 40 MG TABLET PO SCH (09:02)
[2016-08-02] MEDS: METOPROLOL SUCCINATE XL 25 MG TABLET PO SCH (09:02)
[2016-08-02] MEDS: POTASSIUM CHLORIDE RIDER 10 MEQ in PREMIX 1 EACH IV PRN ×3 (09:03→11:38)
--- NOTE | 2016-08-02 09:13 | EKG Report ---
Stationary ECG Study 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
[2016-08-02] MEDS ORDERED: HYDROCORTISONE 100 MG VIAL IV SCH (10:00)
--- NOTE | 2016-08-02 10:00 | Oncology Progress Note ---
Oncology Subjective PN Interval history: I have reviewed the other records on Mr. Tirado. He has been on Bactrim for toxoplasmosis and it has now been discontinued. I am going to start him on a higher dose of corticosteroids. In addition, I am going to give him 1 dose of leucovorin in the hopes that it might allow his thrombocytopenia and leukopenia to improve faster. He has not seen a try out person in the past. He is surprisingly well versed in his diagnoses. It is my opinion that the most likely cause of this patient's leukopenia and thrombocytopenia is the Bactrim. This is an idiosyncratic reaction which can occur unpredictably. If discontinuation of the Bactrim and treatment with corticosteroid therapy does not result in improvement relatively quickly, then we will consider a bone marrow biopsy and aspirate. On examining the patient, he appears relatively oriented and alert. Eyes: Lids and conjunctive are normal. There are no hemorrhages. ENT: His tongue is very dry and coated but he does not have any evidence of stomatitis or oral lesions. Lungs: His lungs are relatively clear and his chest moves symmetrically with unlabored respiration. Cardiovascular: His heart rhythm is regular without murmur, gallop or rub. There is no jugular venous distention, clubbing or cyanosis. Abdomen: I cannot palpate his spleen. There is no evidence of ascites and no masses or organomegaly. Neurologic: Cranial nerves II through XII are intact. Skin: I do not see petechiae. I will follow his blood work. I discussed his case with Dr. Kumari and Dr. Luna. Exam - Constitutional Vitals: Period Temp Pulse Resp BP Sys/Hester Pulse Ox Last 24 Hr 97.5 F-101 F 79-115 18-29 85-124/50-74 93-99 Results - Labs CBC & BMP: 08/02/16 04:03 08/02/16 04:03 Quality Measures - VTE Contraindication to Pharmacological VTE Prophylaxis: Thrombocytopenia
--- NOTE | 2016-08-02 11:23 | Hospitalist Progress Note ---
Assessment and Plan (1) Fever Status: Acute Assessment and plan: 1)ID: febrile illness with strep throat, mild pneumonia and hypotension and thrombocytopenia= sepsis- still febrile day 4 of antibiotics, with significant complaints of sore throat. CT neck. Continue antibiotics and consult ID- other cultures all negative. Pneumonia not too impressive on CXR or exam. Some thrush also- continue nystatin. With behavior changes, could consider other sources of infection. 2)hypotension- secondary adrenal insufficiency likely with his long history of intermittent oral steroids. started hydrocortisone then changed to solumedrol - see below. 3)thrombocytopenia- Dr Pastor saw him this morning. I have transfused him again with platelets of 18. The solumedrol will treat for ITP from Bactrim. No sign of bleeding. He also gave a dose of leucovorin. check heavy metals screen 4)encephalopathy- CT brain today. oriented but irritable, was combative earlier , on geodon now. Up to now has lived with his daughter but has been independent. 5)N/V- these have resolved. Current Visit: Yes (2) Cataract, left eye Status: Resolved Current Visit: No (3) Toxoplasma chorioretinitis, left Status: Chronic Current Visit: Yes (4) Acid reflux Status: Chronic Current Visit: Yes (5) Sleep apnea in adult Status: Chronic Current Visit: No (6) Cataract, right eye Status: Resolved Current Visit: No (7) Hyponatremia Status: Acute Current Visit: Yes (8) Candidiasis of mouth Status: Acute Current Visit: Yes (9) Fatigue Status: Acute Current Visit: Yes (10) Nausea and vomiting Status: Acute Current Visit: Yes (11) Sepsis Status: Acute Current Visit: Yes (12) Hypotension Status: Acute Current Visit: Yes (13) Acute idiopathic thrombocytopenic purpura Status: Acute Current Visit: Yes (14) Pneumonia Status: Acute Current Visit: Yes Qualifiers: Pneumonia type: due to unspecified organism (15) Strep pharyngitis Status: Acute Current Visit: Yes (16) Encephalopathy Status: Acute Current Visit: Yes Hospitalist: Subjective Interval history: Mr Tirado complains of sore throat and denies shortness of breath or GI complaints. He denies other pain, no rash. He was sick a few days before coming to the hospital. Since admission he has sepsis with persistent hypotension, strep throat, mild pneumonia/bronchitis, severe thrombocytopenia. He was on daily oral prednisone and Bactrim for toxo of left eye which is chronic and for which he takes those meds off and on. He had been on them for a couple of weeks prior to admission. Dr Luna manages his toxo and called to give context. He is concerned that he may have heavy metal or some other unusual exposures contributing particularly to his low platelets because he is exposed to pesticides, eats wild game, and fish form [place], etc. Exam - Constitutional Vitals: Period Temp Pulse Resp BP Sys/Hester Pulse Ox Last 24 Hr 97.5 F-101 F 79-115 18-29 85-124/50-74 94-99 General appearance: normal weight, mild distress (cough that sounds wet. ) - Head Head exam: Present: normocephalic, atraumatic - Eye Eye exam: Absent: conjunctival injection, scleral icterus - ENT ENT exam: Present: other (posterior pharynx difficult to see but what I can see is erythematous and looks like thrush too, and his tongue is very dry.) - Respiratory Respiratory exam: Present: rales (only at bases in oposterior hicks, no wheezes , clears with cough) - Cardiovascular Cardiovascular exam: Present: irregular rhythm, tachycardia - GI/Abdominal GI/Abdominal exam: Present: normal bowel sounds, soft. Absent: tenderness - Extremities Exam Extremities exam: Absent: edema - Neurological Exam Neurological exam: Present: alert, oriented X3 - Skin Skin exam: Present: warm, dry. Absent: petechiae, rash Results - Labs CBC & BMP: 08/02/16 04:03 08/02/16 04:03 Lab Results: I have reviewed the past 24 hour labs Quality Measures - VTE Contraindication to Pharmacological VTE Prophylaxis: Thrombocytopenia
--- NOTE | 2016-08-02 11:27 | Infectious Disease Consult ---
History of Present Illness Chief complaint: Sepsis History of present illness: Mr. Tirado is a 85 year old male Admitted 4 days ago with flulike symptoms. For about a week prior to presentation he developed generalized body aches malaise subjective fever and also sore throat. He is also been nauseous but no vomiting he had some watery stools. The patient was at an outside hospital and was found to have severe thrombocytopenia and so he is referred to our institution for continued management. Of note he has a diagnosis of toxoplasmosis of the left diagnosed initially 4 years ago. He says he is following with an last turner and goes on therapy for this intermittently. He was put on Bactrim almost a month ago along with prednisone. There was concern that the Bactrim was the cause of his thrombocytopenia. The patient was hypotensive on admission and so was admitted to ICU. He has not required vasopressor support. He developed worsening tachycardia and has new onset atrial fibrillation this morning. The patient has been having on and off fevers since admission. He is on levofloxacin and ceftriaxone. Blood cultures are negative and I am asked to advise further. The only positive culture was a throat swab which was positive for strep and he was treated with penicillin on arrival to the emergency room. 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 Of note patient says he feels worse today rather than better since admission. Impression: Apparent sepsis without obvious focus. With the thrombocytopenia and leukopenia and the patient's exposure history I am concerned about tickborne illnesses such as ehrlichiosis or rickettsial infections. Alternatively this could be a nonspecific viral infection though patient should be starting to feel better by now rather than worse. Bactrim could also account for the findings however again, patient should be feeling better now that the Bactrim has been stopped. Recommendations: 1. Send serologies for Ehrlichia as well as Rickettsiae 2. Repeat blood cultures given continued fever 3. Echocardiogram for completeness sake 4. Empirically start doxycycline 100 g IV every 12 hourly 5. Can continue levofloxacin for now for the pneumonia mentioned by the radiologist, but in case of slight possibility of beta-lactam induced fever I would stop the ceftriaxone as I see no indication for this at this time. 6. Follow-up pending results and make adjustments accordingly Thank you very much for the consult. Will follow. Home Medications Medication Instructions Recorded Confirmed Type Hyoscyamine Sulfate [Oscimin] 1 tablet SL DIRECTED 07/29/16 07/29/16 History Sildenafil Citrate [Viagra] 1 tablet PO DIRECTED 07/29/16 07/29/16 History Tamsulosin HCl [Tamsulosin HCl] 1 capsule PO DAILY 07/29/16 07/29/16 History Allergies Allergy/AdvReac Type Severity Reaction Status Date / Time No Known Allergies Allergy Verified 03/17/16 06:27 12 point system: reviewed and no additional remarkable complaints except as stated (Per HPI) Medical,Surgical,& Family Hx - Medical History Neurology: History of: Vertigo (past history) No history of: Seizures HEENT: History of: 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, glasses) Endocrine: History of: Dyslipidemia (pt states he is not taking medication) Respiratory: History of: Bronchitis (chronic), Obstructive Sleep Apnea (cpap) Gastrointestinal: History of: GERD Musculoskeletal: History of: Musculoskeletal Problems (degenerative arthritis) Other: History of: Cancer (skin cancer face) No history of: Anesthesia Reactions - Surgical History HEENT Surgeries: Surgical HX of: Eye Surgery (COS) Abdominal Surgeries: Surgical HX of: Cholecystectomy (05/02/15), Colonoscopy, EGD Orthopedic Surgeries: Surgical HX of;: Orthopedic Surgery (carpal tunnel bilateral), Total Hip Replacement (right 2006) - Family History Family History: Reports;: Family Heart Disease (father) - Social History Smoking Status: Never smoker Frequency of Alcohol Use: None Type of Drug Use: None Infectious Disease Exam H&P - Constitutional Vitals: Vital Signs Temp Pulse Resp BP Pulse Ox 97.5 F L 80 25 H 108/59 97 08/02/16 08:00 08/02/16 08:00 08/02/16 08:00 08/02/16 08:00 08/02/16 08:00 Intake and Output 08/01/16 08/02/16 08/02/16 23:59 07:59 15:59 Intake Total 1660 / 1660 1150 / 1150 1100 / 1100 Output Total 1110 / 1110 660 / 660 Balance 550 / 550 490 / 490 1100 / 1100 Intake: IV 1250 / 1250 1000 / 1000 1100 / 1100 Levaquin Inj 750 mg In 150 / 150 Premix 1 Each @ 100 mls/ hr IV Q24H JOCELYNN Rx#: [id number] Potassium Chloride Humberto 100 / 100 10 Meq/100 ml In Premix 1 Each @ 100 mls/hr IV . PER PROTOCOL PRN Rx#: [id number] Ns 1,000 ml @ 125 mls/hr 1000 / 1000 1000 / 1000 1000 / 1000 IV .Q8H JOCELYNN Rx#: [id number] Rocephin 1,000 mg In Ns 100 / 100 100 ml @ 200 mls/hr IV Q24H JOCELYNN Rx#:[id number] Oral 410 / 410 150 / 150 Output: Urine 1110 / 1110 660 / 660 Other: Voiding Method Indwelling Catheter Indwelling Catheter # Bowel Movements 0 1 Weight 71.668 kg Patient Weight 08/02/16 23:59 Weight 71.668 kg Exam: General: Patient appears quite malaised but is conversant HEENT: Mucous membranes pink and moist, anicteric acyanotic, PERRLA, no oral exudates Neck: Supple, no thyroid gland enlargement, no lymphadenopathy Respiratory system: Breath sounds vesicular, no crepitations or wheezes Cardiovascular: Normal S1 and S2, no murmurs appreciated Abdomen: Normal bowel sounds, soft nontender throughout, no organomegaly or mass Genitourinary: No suprapubic pain or bladder distention, clear urine from Patricia catheter Extremities: no edema Skin: No rash OFFICE AUTOMATION CLERK: No obvious focal deficits Reports - Labs CBC & BMP: 08/02/16 04:03 08/02/16 04:03 Labs: Laboratory Results - last 24 hr 08/02/16 08/02/16 04:03 04:03 WBC 3.9 L RBC 3.36 L Hgb 10.5 L Hct 31.0 L MCV 92.3 MCH 31 MCHC 33.9 RDW 13.9 Plt Count 18 L* D MPV 10.1 Neut % (Auto) 83.0 H Lymph % (Auto) 14.7 L Hutchinson % (Auto) 1.3 L Eos % (Auto) 0.0 Baso % (Auto) 0.0 Neut # (Auto) 3.2 Lymph # (Auto) 0.6 L Hutchinson # (Auto) 0.1 L Eos # (Auto) 0.0 Baso # (Auto) 0.0 Total Counted 100 Immature Gran % 1.0 Nucleated RBC % 0.0 Immature Gran # 0.04 Segmented Neutrophils 83 Band Neutrophils 4 Lymphocytes 11 L Monocytes 2 Nucleated RBCs # 0.00 Platelet Estimate Decreased Hypochromasia Slight Microcytosis Slight Sodium 133 L Potassium 3.5 Chloride 104 Carbon Dioxide 17 L Anion Gap 15.5 H BUN 26 H Creatinine 1.50 H GFR Calculation 46 BUN/Creatinine Ratio 17.00 Glucose 104 Calculated Osmolality 270.4 L Calcium 6.1 L - Reports Microbiology: Microbiology 07/30/16 17:16 Stool Culture - Final Stool No enteric pathogens at 48 hrs 07/30/16 15:15 MRSA Surveillance Culture - Final Nares - Both Nares (Mrsa screen) No MRSA isolated. - Diagnostic Findings Procedure: Chest x-ray: image reviewed by me, report reviewed by me (I did not appreciate consolidation however the radiologist mentioned pneumonia in left base)
[2016-08-02] MEDS: methylPREDNISolone SOD SUC 125 MG/2 ML VIAL IV SCH ×2 (11:37→23:59)
[2016-08-02] MEDS ORDERED: DEXTROSE 5% IV ONE (12:00)
[2016-08-02] MEDS ORDERED: LEUCOVORIN IV ONE (12:00)
--- NOTE | 2016-08-02 12:11 | CT Report ---
Referring physician: Kavitha Leonard Exam: CT brain without contrast Date: August 02, 2016 Comparison: None Reason: Delirious, sepsis, toxo of eye Technique: Axial images of the head were obtained without the use of contrast. Total DLP was 997.9 mGy*cm. Findings: There is mild to moderate generalized cerebral and cerebellar atrophy/volume loss and probable chronic microvascular ischemic change. No hydrocephalus or midline shift is present. There is no evidence of recent intracranial hemorrhage, abnormal mass effect or acute infarction. No acute osseous process is seen. The mastoid air cells and visualized paranasal sinuses appear clear. There is a history of an abnormality of the eye, but this is not well demonstrated by CT. Impression: 1. No acute intracranial process is identified. 2. Mild to moderate generalized cerebral and cerebellar atrophy/volume loss and probable chronic microvascular ischemic change. The CT exam was performed using one or more of the following dose reduction techniques: Automated exposure control and adjustment of the mA and/or kV according to patient size. PROCEDURE INTERPRETED AT [facility] DEPARTMENT OF RADIOLOGY Final Report Signed by: Dr. Claus Bello
--- NOTE | 2016-08-02 12:25 | CT Report ---
Referring Physician: Kavitha Leonard Exam: CT soft tissue neck without contrast Date: August 02, 2016 Reason: Strep throat, poor swallowing Comparison: None Technique: Axial images of the neck were obtained without the use of contrast. Sagittal and coronal reformatted images were also acquired. Total DLP was 248.5 mGy*cm. Findings: The visualized intracranial structures are unremarkable. The patient is likely status post cataract surgery. The mastoid air cells and middle ear cavities are clear except for minimal mucosal thickening within the posterior right ethmoid air cells. The parotid, submandibular and thyroid glands are unremarkable. There is minimal air at the anterior aspects of the internal jugular veins, which is likely related to a recent venous procedure. Scattered calcified plaque is also seen at the arteries. No suspicious adenopathy is identified within the neck. The parapharyngeal spaces are clear. The nasopharynx is unremarkable. The oropharynx is partially obscured by artifact from dental hardware. This makes evaluation of the palatine tonsils difficult, but no peritonsillar abscess is identified, and no significant narrowing of the airway is seen. The hypopharynx and larynx are slightly distended with air but otherwise unremarkable. The trachea is also unremarkable. The upper esophagus is poorly distended and difficult to evaluate near the thoracic inlet. The visualized intrathoracic esophagus is slightly distended with air. The esophagus could be better evaluated with an esophagram/barium swallow study. There is dependent pleural fluid bilaterally. There also dependent opacities within both lungs which are favored to represent atelectasis. No pneumothorax is identified. No acute osseous process is seen. However, there is multilevel degenerative change at the cervical spine. Impression: 1. The patient has a history of strep throat and difficulty swallowing. The oropharynx is partially obscured by artifact from dental hardware. However, no peritonsillar abscess or significant airway narrowing is seen. 2. The upper esophagus is poorly distended and difficult to evaluate. It could be further evaluated with an esophagram/barium swallow study. 3. Bilateral pleural fluid and associated mild atelectasis. The CT exam was performed using one or more of the following dose reduction techniques: Automated exposure control and adjustment of the mA and/or kV according to patient size PROCEDURE INTERPRETED AT [facility] DEPARTMENT OF RADIOLOGY Final Report Signed by: Dr. Claus Bello
[2016-08-02] MEDS: DOXYCYCLINE HYCLATE INJ 100 MG in SODIUM CHLORIDE 0.9% 100 ML IV SCH ×2 (14:11→23:59)
[2016-08-02] MEDS ORDERED: SODIUM CHLORIDE 0.9% 1,000 ML IV ONE (15:34)
--- NOTE | 2016-08-02 16:01 | ECHO Report ---
Garrett Tirado Exam Date: 08/02/2016 14:27 Referring Physician: Technologist: Jane Pillai Age: 85 Ht (in): 69 Wt (lb): 158 Gender: M Exam Location: [facility] Echo Indications: sepsis, hyponatremia, fever, encephalopathy, pneumonia, strep pharyngitis, thrombocytopenia BP: 90 / 62 HR: 115 Rhythm: Sinus Technical Quality: Technically difficult study IMPRESSIONS Left ventricular ejection fraction is estimated at 55-60%. The right ventricle looks mildly enlarged and hypokinetic. Mildly enlarged right atrium. Trace mitral valve regurgitation. Trace to mild tricuspid valve regurgitation. MEASUREMENTS (Male / Female) Normal Values 2D ECHO LV Diastolic Diameter PLAX 3.8 cm 4.2 - 5.9 / 3.9 - 5.3 cm LV Systolic Diameter PLAX 2.6 cm LV Fractional Shortening PLAX 31.7 % IVS Diastolic Thickness 2.0 cm 0.6 - 1.0 / 0.6 - 0.9 cm LVPW Diastolic Thickness 1.5 cm 0.6 - 1.0 / 0.6 - 0.9 cm RV Internal Dim ED PLAX 3.3 cm Aortic Root Diameter 2.7 cm LA Systolic Diameter LX 3.1 cm 3.0 - 4.0 / 2.7 - 3.8 cm DOPPLER TR Peak Velocity 175.0 cm/s TR Peak Gradient 12.3 mmHg FINDINGS Left Ventricle Normal left ventricular cavity size. Mild concentric left ventricular hypertrophy. Left ventricular ejection fraction is estimated at 55-60% Right Ventricle The right ventricle looks mildly enlarged and hypokinetic Right Atrium Mildly enlarged right atrium. Left Atrium Normal left atrial size. Mitral Valve Mild mitral valve sclerosis. Trace mitral valve regurgitation. Aortic Valve Mild aortic valve sclerosis. Tricuspid Valve Morphologically normal tricuspid valve. Trace to mild tricuspid valve regurgitation. Tricuspid regurgitation velocities suggest a PAP of 12.3 mmHg + RAP. Pulmonic Valve Morphologically normal pulmonic valve. Pericardium Aorta Normal size aortic root and proximal ascending aorta. Nabeel Kay (Electronically Signed) Final Date: 02 Aug 2016 15:59
--- NOTE | 2016-08-02 16:18 | Cardiology Consult Note ---
Assessment and Plan - Time spent with patient Time spent with patient: Greater than 30 minutes (1) Atrial fibrillation with rapid ventricular response Status: Acute Assessment and plan: SEE PLAN OF CARE LISTED BELOW Current Visit: Yes (2) Toxoplasma chorioretinitis, left Status: Chronic Assessment and plan: SEE PLAN OF CARE LISTED BELOW Current Visit: Yes (3) Sleep apnea in adult Status: Chronic Assessment and plan: SEE PLAN OF CARE LISTED BELOW Current Visit: No (4) Fatigue Status: Acute Assessment and plan: SEE PLAN OF CARE LISTED BELOW Current Visit: Yes (5) Sepsis Status: Acute Assessment and plan: SEE PLAN OF CARE LISTED BELOW Current Visit: Yes (6) Hypotension Status: Acute Assessment and plan: SEE PLAN OF CARE LISTED BELOW Current Visit: Yes (7) Acute idiopathic thrombocytopenic purpura Status: Acute Assessment and plan: SEE PLAN OF CARE LISTED BELOW Current Visit: Yes (8) Pneumonia Status: Acute Assessment and plan: SEE PLAN OF CARE LISTED BELOW Current Visit: Yes Qualifiers: Pneumonia type: due to unspecified organism (9) Strep pharyngitis Status: Acute Assessment and plan: SEE PLAN OF CARE LISTED BELOW Current Visit: Yes History of Present Illness - Data of Consult Patient: new to practice Consult date: 08/02/16 Requesting Physician: Kavitha Leonard - Consult Narrative Reason for consult: atrial fib new onset History of present illness: 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 KAY ([facility]) Patient is being seen in the CCU. The majority of this information is taken from medical records and medical staff as the patient is on BiPAP device and has some difficulty speaking through the mask. Mr. Tirado, 85WM, presented to the emergency department at [facility] July 29, 2016 with complaints of flulike symptoms, weakness and body aches. No prior cardiac history is noted. Patient was referred to the ER after being evaluated in outlying clinic with the same complaints. He was found to be thrombocytopenic and he was admitted for further workup to include possible sepsis. He was found to be positive for strep. Chest x-ray reveals a possible pneumonia. 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 He was previously treated with Bactrim outpatient which may have contributed to or caused his thrombocytopenia. Dr. Morales has evaluated patient and is concerned he may have a tickborne illness. He is currently being worked up for this as well. Cardiology was consulted for new onset of atrial fibrillation which began today. Initially, IV diltiazem was initiated and his heart rate came under better control. Unfortunately, his systolic blood pressure has been dropping and he cannot tolerate higher doses. The possibility of DCCV will not tolerate higher doses of calcium channel kavita or department he denies having had KS or CAD. There are no records in the OMS system at [facility]. Echo reveals EF 60%, RA enlargement noted. Dr. Kay read echo and recommends CT Chest PE Protocol. Will stop IV Diltiazem and treat with Digoxin IV and see if we can control his rate with this. Vitamin C 1000mg orally BID, correct potassium. ASSESSMENT/PLAN: 1. ATRIAL FIB WITH RVR - new onset. Will try to control rate with Dig. If unable to do so, or patient does not spontaneously convert to NSR, will consider DCCV tomorrow. 2. HYPOTENSION - see plan of care listed above. 3. SEPSIS - being considered for tick-borne illness 4. THROMBOCYTOPENIA - continue close monitoring 5. COMMUNITY ACQUIRED PNEUMONIA - being treated appropriately 6. SLEEP APNEA - using CPAP device 7. STREP PHARYNGITIS - has received appropriate treatment CC: Kavitha Leonard MD - Home Medications and Allergies Home Medications: Home Medications Medication Instructions Recorded Confirmed Type Hyoscyamine Sulfate [Oscimin] 1 tablet SL DIRECTED 07/29/16 07/29/16 History Sildenafil Citrate [Viagra] 1 tablet PO DIRECTED 07/29/16 07/29/16 History Tamsulosin HCl [Tamsulosin HCl] 1 capsule PO DAILY 07/29/16 07/29/16 History Allergies/Adverse Reactions: Allergies Allergy/AdvReac Type Severity Reaction Status Date / Time No Known Allergies Allergy Verified 03/17/16 06:27 ROS unobtainable: other Medical,Surgical,& Family Hx - Medical History Cardio: No history of: Cardiac Dysrhythmia, CAD, [place] Neurology: History of: Vertigo (past history) No history of: Seizures HEENT: History of: 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, glasses) Endocrine: History of: Dyslipidemia (pt states he is not taking medication) Respiratory: History of: Bronchitis (chronic), Obstructive Sleep Apnea (cpap) Gastrointestinal: History of: GERD Musculoskeletal: History of: Musculoskeletal Problems (degenerative arthritis) Other: History of: Cancer (skin cancer face) No history of: Anesthesia Reactions - Surgical History HEENT Surgeries: Surgical HX of: Eye Surgery (COS) Abdominal Surgeries: Surgical HX of: Cholecystectomy (05/02/15), Colonoscopy, EGD Orthopedic Surgeries: Surgical HX of;: Orthopedic Surgery (carpal tunnel bilateral), Total Hip Replacement (right 2007) - Family History Family History: Reports;: Family Heart Disease (father) - Social History Smoking Status: Never smoker Have you smoked in the last 12 months: No Frequency of Alcohol Use: None Type of Drug Use: None Physical Examination Vital Signs Temp Pulse Resp BP Pulse Ox 99.9 F H 108 H 20 113/76 97 07/29/16 17:25 07/29/16 17:25 07/29/16 17:25 07/29/16 17:25 07/29/16 17:25 General: [Wearing CPAP device in bed. Cooperative, pleasant. ] HEENT: [PERRL, atraumatic. Mucous membranes moist. No jaundice noted. Conjunctiva moist and clear, sclerae anicteric] Neck: No obvious JVD/HJR, no thyromegaly or lymphadenopathy noted. No carotid bruit appreciated Cardiac: [Irregularly irregular rhythm, fast rate. [No obvious murmur, rub or gallop.] Lungs: [Rhonchi noted throughout. ] Oxygen in use via CPAP device Abdomen: Soft, bowel sounds normoactive. Nontender and nondistended. No abdominal bruit or thrill noted. No masses noted. Musculoskeletal: No fluid collection. Decreased range of motion is noted. Extremities: No clubbing, cyanosis noted. [ No edema noted.] Upper extremity pulses 2+. Lower extremity pulses 2+. Capillary refill less than 3 seconds. Skin: No unusual lesions or rashes. No skin breakdown appreciated. Neuro: Awake, alert and oriented 3. Moves all extremities well without hemiparesis or paralysis. No essential tremor is appreciated. Result/EKG - Labs CBC & BMP: 08/02/16 04:03 08/02/16 04:03 Lab Results: I have reviewed the past 24 hour labs Labs: Laboratory Results - last 24 hr 08/02/16 08/02/16 04:03 04:03 WBC 3.9 L RBC 3.36 L Hgb 10.5 L Hct 31.0 L MCV 92.3 MCH 31 MCHC 33.9 RDW 13.9 Plt Count 18 L* D MPV 10.1 Neut % (Auto) 83.0 H Lymph % (Auto) 14.7 L Beauregard % (Auto) 1.3 L Eos % (Auto) 0.0 Baso % (Auto) 0.0 Neut # (Auto) 3.2 Lymph # (Auto) 0.6 L Beauregard # (Auto) 0.1 L Eos # (Auto) 0.0 Baso # (Auto) 0.0 Total Counted 100 Immature Gran % 1.0 Nucleated RBC % 0.0 Immature Gran # 0.04 Segmented Neutrophils 83 Band Neutrophils 4 Lymphocytes 11 L Monocytes 2 Nucleated RBCs # 0.00 Platelet Estimate Decreased Hypochromasia Slight Microcytosis Slight Sodium 133 L Potassium 3.5 Chloride 104 Carbon Dioxide 17 L Anion Gap 15.5 H BUN 26 H Creatinine 1.50 H GFR Calculation 46 BUN/Creatinine Ratio 17.00 Glucose 104 Calculated Osmolality 270.4 L Calcium 6.1 L - Diagnostic Findings Procedure: Chest x-ray: report reviewed by me - EKG EKG results: interpreted by me EKG shows: atrial fibrillation Quality Measures - VTE Contraindication to Pharmacological VTE Prophylaxis: Thrombocytopenia
[2016-08-02] MEDS ORDERED: DIGOXIN 0.5 MG/2 ML AMP IV ONE (16:45)
[2016-08-02 17:00] LABS: Free T4 (Free Thyroxine) 0.91 NG/DL (0.76-1.46); Thyroid Stimulating Hormone 0.782 uIU/ml (0.358-3.74)
[2016-08-02] MEDS: ASCORBIC ACID 500 MG TABLET PO SCH (17:39)
--- NOTE | 2016-08-02 18:16 | Ophthalmology Progress Note ---
Opthalmology - PN: Subj Interval history: Ophthalmology consult: 85 yo wm well known to me. Hospitalized for febrile illness with n/v/d and leukopenia/thrombocytopenia etiology unclear at this point despite full w/u. Has been treated intermittently for toxoplasmosis chorioretinitis since August 2012 with courses of Bactrim and Prednisone. His last flare up occurred in early July and was treated with Bactrim bid and Prednisone 10-20mg bid and pred forte gtts qid OS. Up to now he has tolerated this type of regimen well without adverse symptoms. His last outpatient CBC in November of 2015 was normal. It is unclear if his work in the [employer] [place] [employer] have exposed him to other causative agents that may be causing the low platelets etc. EXAM: General:WDMNWM acutely ill but able to converse with effort. VA OD 20/40 OS 20/80 at near with glasses. PERRL,EOMs intact. No ptosis. Conjunctiva nonicteric and noninjected. Corneas with arcus. No gross keratic ppts. Iris wnl. Intraocular lens implants in stable position. IOP ok to palpation. Discs sharp 0.2 cup with slight pallor OS(old). MVR ok except drusen OD. OS with old small peripapillary scar from prior Toxoplasmosis. Mild drusen/ RPE changes unchanged OS. No active Toxo lesion at present. 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 RECOMMENDATION: Will follow off any meds for the Toxoplasmosis at this time as eye appears stable. Hopefully his multiple acute issues can be resolved. Multiple tests pending at this time. Ophthalmology Exam - Constitutional Vitals: Vital Signs Temp Pulse Resp BP Pulse Ox 97.8 F 98 H 17 83/61 97 08/02/16 12:33 08/02/16 17:39 08/02/16 14:44 08/02/16 12:33 08/02/16 14:44 Intake and Output 08/02/16 08/02/16 08/02/16 07:59 15:59 23:59 Intake Total 1150 / 1150 1250 / 1250 Output Total 735 / 735 250 / 250 Balance 415 / 415 1000 / 1000 Intake: IV 1000 / 1000 1200 / 1200 Potassium Chloride Humberto 200 / 200 10 Meq/100 ml In Premix 1 Each @ 100 mls/hr IV . PER PROTOCOL PRN Rx#: [id number] Ns 1,000 ml @ 125 mls/hr 1000 / 1000 1000 / 1000 IV .Q8H JOCELYNN Rx#: [id number] Oral 150 / 150 50 / 50 Blood Product 0 / 0 Single Donor Platelets 0 / 0 Split 2 Unit [id number] Output: Urine 735 / 735 250 / 250 Other: Voiding Method Indwelling Catheter Indwelling Catheter # Bowel Movements 1 Weight 71.668 kg Patient Weight 08/02/16 23:59 Weight 71.668 kg Results - Labs CBC & BMP: 08/02/16 04:03 08/02/16 04:03 Quality Measures - VTE Contraindication to Pharmacological VTE Prophylaxis: Thrombocytopenia
--- NOTE | 2016-08-02 18:16 | CT Report ---
Exam: CT chest PE study The total DLP is 358 mGy*cm. Date: 08/02/2016 4:41 PM Indication: Right heart abnormality on echo Comparison: None available Technical: Images were obtained from the thoracic inlet through the lung bases with 80 cc of Omnipaque 350 with axial and coronal imaging available for review. Dose reduction: This CT exam was performed using one or more of the following dose reduction techniques: Automated exposure control, automated adjustment of the mA and/or KV according to patient size, or use of iterative reconstruction technique. Findings: Pulmonary arteries: Pulmonary arteries are patent and well-opacified with no filling defects to suggest pulmonary emboli. Mediastinum/vessels/lymph nodes: Heart and great vessels appear unremarkable. There is no evidence of pericardial effusion. The aorta and great vessels appear widely patent. There is no adenopathy in the chest. There is a small pericardial effusion. Lungs: Bilateral moderate to large pleural effusions with posterior basilar atelectasis are noted. There is no pneumothorax. Central airways are patent. There is no focal consolidation visualized. Thyroid: Thyroid gland appears within normal limits. No acute abnormality is identified within the visualized upper abdomen. BONES: No acute or suspicious appearing osseous abnormalities are identified. Impression: 1. No evidence of pulmonary emboli. 2. Bilateral moderate pleural effusions with posterior basilar atelectatic changes. Small pericardial effusion. PROCEDURE INTERPRETED AT [facility] DEPARTMENT OF RADIOLOGY Final Report Signed by: Anupam Robison
[2016-08-02] MEDS: LEVOFLOXACIN INJ 750 MG in PREMIX 1 EACH IV SCH (20:49)
[2016-08-02] MEDS: FAMOTIDINE 20 MG TABLET PO SCH (20:52)
[2016-08-03] MEDS: ALBUTEROL/IPRATROPIUM 3 ML NEB RESP TX SCH ×4 (01:05→20:35)
[2016-08-03] MEDS: SODIUM CHLORIDE 0.9% 1,000 ML IV SCH ×3 (03:22→23:58)
[2016-08-03 04:26] LABS: Basophils % 0.2 % (0.0-0.8); Hematocrit 31.5 VOL% (42.0-52.0); Hemoglobin 10.6 GM/DL (14.0-18.0); Immature Granulocytes % 0.9 %; Immature Granulocytes Absolute 0.04 #; Lymphocytes # 1.2 10*3/uL (1.4-4.0); Lymphocytes % 26.4 % (21.2-54.2); Mean Corpuscular HGB Conc 33.7 GM/DL (32-36); Mean Corpuscular Hemoglobin 31 PG (27-34); Mean Corpuscular Volume 93.2 FL (87-102); Monocytes # 0.1 10*3/uL (0.11-0.8); Monocytes % 1.9 % (1.7-12.7); Neutrophils # 3.3 10*3/uL (1.4-7.4); Neutrophils % 70.6 % (38.7-73.9); Red Blood Count 3.38 MC/CUMM (3.8-5.5); Red Cell Distribution Width 14.4 % (9.3-17.3); White Blood Count 4.7 T/CUMM (4-12)
[2016-08-03 04:36] LABS: Platelet Count 30 T/CUMM (130-400)
[2016-08-03 04:44] LABS: Calcium 6.2 MG/DL (8.5-10.1); Osmolality,Calculated 279.2 MOS/KG (273-304); Potassium 3.6 MMOL/L (3.5-5.1)
[2016-08-03 05:45] LABS: Band Neutrophils 3 % (0-10); Lymphocytes 11 % (20-55); Nucleated Red Blood Cells 1 (0-5); Platelet Estimate Decreased; Segmented Neutrophils 85 % (50-85); Total Cells Counted 100
[2016-08-03] MEDS: POTASSIUM CHLORIDE 20 MEQ TABLET PO PRN ×2 (06:15→09:04)
--- NOTE | 2016-08-03 07:02 | Oncology Progress Note ---
Oncology Subjective PN Interval history: The lab work demonstrates some modest improvement today. The patient's white cell count is up to normal range at 4700 with an absolute neutrophil count of 3300. His platelet count is higher at 30,000 but he received platelets by transfusion. His hemoglobin is stable at 10.6. I agree with Dr. Middleton that this might be thrombocytopenia due to causes other than the Bactrim but I still believe the Bactrim contributed significantly to this patient's low blood counts. I do not usually see an improvement in the blood counts within 48 hours of discontinuation of it and institution of steroids. It usually takes longer. At the same time, I agree with workup for additional causes of the pancytopenia including evaluation for ehrlichiosis. He has been screened for hepatitis A, B and C and for HIV and all of these are negative. He still has evidence of stomatitis and in fact appears to have oral Diana. I am switching him from nystatin to Mycelex troches and I am adding Diflucan. Will watch for side effects. Exam - Constitutional Vitals: Period Temp Pulse Resp BP Sys/Hester Pulse Ox Last 24 Hr 97.2 F-99.0 F 80-139 17-32 71-108/52-76 93-100 Results - Labs CBC & BMP: 08/03/16 03:59 08/03/16 03:59 Quality Measures - VTE Contraindication to Pharmacological VTE Prophylaxis: Thrombocytopenia
--- NOTE | 2016-08-03 07:52 | XRay Report ---
Referring Physician: Kavitha Leonard Exam: XR chest 1V portable Date: August 03, 2016 at 3:18 AM Reason: Pneumonia, sepsis Comparison: Chest one view portable July 29, 2016, CT chest PE study August 02, 2016 Findings: The cardiac silhouette is normal in size. There are bibasilar opacities, right greater than left. The interstitial markings are also slightly prominent bilaterally. This is most consistent with pulmonary edema and atelectasis, but there could be superimposed pneumonia at the lung bases. No pneumothorax is identified, but there is mild bilateral pleural fluid. The osseous structures appear stable. Impression: 1. Bibasilar opacities are present, and the interstitial markings are slightly prominent. This is most consistent with pulmonary edema and atelectasis, but there could also be pneumonia at the lung bases. 2. Mild bilateral pleural fluid. PROCEDURE INTERPRETED AT [facility] DEPARTMENT OF RADIOLOGY Final Report Signed by: Dr. Claus Bello
--- NOTE | 2016-08-03 09:01 | Infectious Disease Progress ---
Assessment and Plan (1) Candidiasis of mouth Status: Acute Assessment and plan: I appreciated oral candidiasis today for the first time. Agree with addition of fluconazole by Dr. Pastor. Current Visit: Yes (2) Fever Status: Acute Assessment and plan: Possibly due to tickborne illness versus nonspecific viral illness. Afebrile for over 24 hours. Continue with empiric doxycycline and follow-up pending results. Current Visit: Yes (3) Hypotension Status: Acute Assessment and plan: Probably related to sepsis, improved today. Current Visit: Yes (4) Sepsis Status: Acute Assessment and plan: No obvious source yet, on empiric therapy for rickettsial illness versus ehrlichiosis. He is still thrombocytopenic even after platelet transfusion. With that and the transaminitis I am suspicious for ehrlichiosis. Continue with empiric doxycycline. He has completed 5 days of levofloxacin and there is no evidence of pneumonia on CT scan and no other infection for which levofloxacin would be indicated therefore I am going to discontinue this antibiotic. Current Visit: Yes (5) Strep pharyngitis Status: Acute Assessment and plan: Treated on admission. Droplet precautions no longer indicated. Current Visit: Yes (6) Thrombocytopenia Status: Acute Current Visit: Yes (7) Toxoplasma chorioretinitis, left Status: Chronic Assessment and plan: Inactive per ophthalmology discussed treatment not currently indicated. Current Visit: Yes Infectious Disease - PN: Subj Interval history: Patient admits to feeling a little better today for the first time since he was admitted, his blood pressures improved, he is feeling less achy and malaised. He has not had any fever for over 24 hours. Less nausea eating a little more. Infectious Disease Exam (PN) - Constitutional Vitals: Temp Pulse Resp BP Pulse Ox 97.5 F L 96 H 21 114/63 97 08/03/16 08:00 08/03/16 08:00 08/03/16 08:00 08/03/16 08:00 08/03/16 08:00 General appearance: normal weight, mild distress (cough that sounds wet. ) Exam: General appearance: Looks somewhat less ill today than yesterday - Eye Eye exam: Present: EOMI. no icterus Pupils: Present: VERNA - ENT ENT exam: Scant whitish exudates on bucca mucosa - Neck Neck exam: supple, no lymphadenopathy - Respiratory Respiratory exam: vesicular BS decreased in bases, no crepitations or wheezes - Cardiovascular Cardiovascular exam: regular rate and rhythm, no murmurs - GI/Abdominal GI/Abdominal exam: normal bowel sounds, soft, non-tender, no organomegaly or mass - Extremities Exam Extremities exam: Peripheral edema present, mild to moderate - Skin Skin exam: no rash Results - Labs CBC & BMP: 08/03/16 03:59 08/03/16 03:59 Lab Results: I have reviewed the past 24 hour labs - Diagnostic Findings Procedure: CT - chest: report reviewed by me, image reviewed by me (No pneumonia bilateral pleural effusions with some compressive atelectasis) Quality Measures - VTE Contraindication to Pharmacological VTE Prophylaxis: Thrombocytopenia
[2016-08-03] MEDS: CLOTRIMAZOLE 10 MG TROCHE PO SCH ×4 (09:04→23:59)
[2016-08-03] MEDS: PANTOPRAZOLE 40 MG TABLET PO SCH (09:04)
[2016-08-03] MEDS: FLUCONAZOLE 100 MG TABLET PO SCH (09:04)
[2016-08-03] MEDS: TAMSULOSIN 0.4 MG CAPSULE PO SCH (09:04)
[2016-08-03] MEDS: ASCORBIC ACID 500 MG TABLET PO SCH ×2 (09:04→19:59)
[2016-08-03] MEDS ORDERED: PHENOL 1.4% THROAT SPRAY 177 ML BOTTLE PO PRN (09:09)
--- NOTE | 2016-08-03 09:42 | Hospitalist Progress Note ---
Assessment and Plan (1) Sepsis Status: Acute Assessment and plan: 1)ID- febrile illness with sepsis, may be tick borne illness. Has been treated for strep thoat. Ehrlichia and ricketsial titers pending. Day 2 of Doxy. Levaquin stopped as no sign of pneumonia- it is ruled out. No fever in 24 hours, he is starting to feel better, BP improved. Oral thrush- perists despite nystatin- changed to diflucan and mycelex lozenge today. KANG noonan also. 2)hypotension due in part to adrenal insufficiency- on steroids day 2 (takes them for long stretches intermittently for years for his toxo chorioretinitis). conitnue steroids for now as they also address his low platelets 3)thrombocytopenia- ITP- on steroids, got a dose of leucovorin. bactrim is the likely cause in this case- it has been held since admission. Heavy metal screen pending 4)encephalopathy- resolved. CT brain yesterday looked ok also 5)rapid afib- he flipped into afib yesterday morning and has no history of this. His rate has been controlled with IV Dig and Dilt, cards now seeing, no cardioversion for now as he is tolerating the afib at this time and may spontaneously convert. cannot be anticoagulated because of his low platelets. 6)nutrition- change to cardiac diet 7)dispo- transfer to tele later today if he tolerated getting up a bit, and his BP stays up. Current Visit: Yes (2) Secondary adrenal insufficiency Status: Acute Current Visit: Yes (3) Toxoplasma chorioretinitis, left Status: Chronic Current Visit: Yes (4) Acid reflux Status: Chronic Current Visit: Yes (5) Sleep apnea in adult Status: Chronic Current Visit: No (6) Candidiasis of mouth Status: Acute Current Visit: Yes (7) Fatigue Status: Acute Current Visit: Yes (8) Hypotension Status: Acute Current Visit: Yes (9) Acute idiopathic thrombocytopenic purpura Status: Acute Current Visit: Yes (10) Strep pharyngitis Status: Resolved Current Visit: Yes (11) Encephalopathy Status: Resolved Current Visit: Yes Hospitalist: Subjective Interval history: Mr Tirado reports he feels better today. His appetite has improved and he wants real food. His throat still hurts, but he noticed that he has less aching in his joints. He has been afebrile for 24 hours. No rash. No headache. He wants to get out of bed. His blood pressure is noticeably better this morning now with SBP in 90-100 range with only occasional drops to 80s. Exam - Constitutional Vitals: Period Temp Pulse Resp BP Sys/Hester Pulse Ox Last 24 Hr 97.2 F-99.0 F 90-134 17-32 71-114/52-76 93-100 General appearance: normal weight, no acute distress - Head Head exam: Present: normocephalic, atraumatic - Eye Eye exam: Present: EOMI. Absent: scleral icterus - Respiratory Respiratory exam: Present: clear to auscultation bilaterally - Cardiovascular Cardiovascular exam: Present: irregular rhythm - GI/Abdominal GI/Abdominal exam: Present: normal bowel sounds, soft. Absent: tenderness - Extremities Exam Extremities exam: Absent: edema - Neurological Exam Neurological exam: Present: alert, oriented X3, CN II-XII intact. Absent: motor sensory deficit - Skin Skin exam: Present: warm, dry. Absent: petechiae, rash Results - Labs CBC & BMP: 08/03/16 03:59 08/03/16 03:59 Lab Results: I have reviewed the past 24 hour labs Quality Measures - VTE Contraindication to Pharmacological VTE Prophylaxis: Thrombocytopenia
--- NOTE | 2016-08-03 10:26 | Cardiology Progress Note ---
Assessment and Plan - Time spent with patient Time spent with patient: Greater than 30 minutes (1) Atrial fibrillation with rapid ventricular response Status: Acute Assessment and plan: SEE PLAN OF CARE LISTED BELOW Current Visit: Yes (2) Toxoplasma chorioretinitis, left Status: Chronic Assessment and plan: SEE PLAN OF CARE LISTED BELOW Current Visit: Yes (3) Sleep apnea in adult Status: Chronic Assessment and plan: SEE PLAN OF CARE LISTED BELOW Current Visit: No (4) Fatigue Status: Acute Assessment and plan: SEE PLAN OF CARE LISTED BELOW Current Visit: Yes (5) Sepsis Status: Acute Assessment and plan: SEE PLAN OF CARE LISTED BELOW Current Visit: Yes (6) Hypotension Status: Acute Assessment and plan: SEE PLAN OF CARE LISTED BELOW Current Visit: Yes (7) Acute idiopathic thrombocytopenic purpura Status: Acute Assessment and plan: SEE PLAN OF CARE LISTED BELOW Current Visit: Yes (8) Pneumonia Status: Deleted Assessment and plan: SEE PLAN OF CARE LISTED BELOW Current Visit: Yes Qualifiers: Pneumonia type: due to unspecified organism (9) Strep pharyngitis Status: Resolved Assessment and plan: SEE PLAN OF CARE LISTED BELOW Current Visit: Yes Cardiology - PN: Subj Interval history: 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 Tirado, 85WM, presented to the emergency department at [facility] July 29, 2016 with complaints of flulike symptoms, weakness and body aches. No prior cardiac history is noted. Patient was referred to the ER after being evaluated in outlying clinic with the same complaints. He was found to be thrombocytopenic and he was admitted for further workup to include possible sepsis. He was found to be positive for strep. Chest x-ray revealed possible pneumonia and he is being treated for this. 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 He was previously treated with Bactrim outpatient which may have contributed to or caused his thrombocytopenia. Dr. Morales has evaluated patient and is concerned he may have a tickborne illness. He is currently being worked up for this as well. Cardiology was consulted for new onset of atrial fibrillation. Initially, IV diltiazem was initiated and his heart rate came under better control. Unfortunately, increasing dose of Diltiazem has been difficult due to hypotension. Digoxin was initiated. Echo reveals EF 60%, RA enlargement noted. CT Chest negative for PE. AUGUST 03, 2016: Overnight, blood pressure has improved. He is still receiving Cardizem 5 mg/h as well as digoxin 0.125 mg IV daily. Heart rate has improved but averages around 90 - 105 bpm. There was discussion regarding the possibility of cardioversion however, since he is tolerating the atrial fibrillation medical management will ensue at this time. He is also currently being empirically treated for rickettsial illness versus ehrlichiosis. Platelets are 30,000 this morning. I will add a magnesium to his daily labs. Potassium is 3.6 and will give a dose of potassium this morning. ASSESSMENT/PLAN: 1. ATRIAL FIB WITH RVR - new onset yesterday. May consider an additional dose of digoxing this afternoon if heart rate remains high. (Has not received 0900 dose yet and we will monitor. Replace potassium. Hopefully, soon, we will be able to incorporate higher dose CCB. Will soon consider transitioning from IV Cardizem to oral. Will review this afternoon. Due to thrombocytopenia, not a candidate for anticoagulation. 2. HYPOTENSION - see plan of care listed above. 3. SEPSIS - being aggresively treated. Improving. 4. THROMBOCYTOPENIA - continue close monitoring 5. COMMUNITY ACQUIRED PNEUMONIA - being treated appropriately 6. SLEEP APNEA - using CPAP device 7. STREP PHARYNGITIS - has received appropriate treatment Exam (Progress Note) - Constitutional Vitals: Period Temp Pulse Resp BP Sys/Hester Pulse Ox Last 24 Hr 97.2 F-99.0 F 90-124 17-32 71-114/52-76 93-100 Exam: General: [Appears well with no apparent distress.] [Pleasant and cooperative. ] [Appears comfortable.] HEENT: [PERRL, normocephalic, atraumatic. Mucous membranes moist. No jaundice noted. Conjunctiva moist and clear, sclerae anicteric] Neck: No obvious JVD/HJR, no thyromegaly or lymphadenopathy noted. No carotid bruit appreciated Cardiac: [Irregularly irregular rhythm. Controlled rate. [No obvious murmur rub or gallop.] Lungs: [Remains tachypneic but improved. Rhonchi noted throughout. Continues to use oxygen via nasal cannula. Abdomen: Soft, bowel sounds normoactive. Nontender and nondistended. No abdominal bruit or thrill noted. No masses noted. Musculoskeletal: No fluid collection. Decreased range of motion is noted. Extremities: No clubbing, cyanosis noted. [ No edema noted.] Upper extremity pulses 2+. Lower extremity pulses 2+. Capillary refill less than 3 seconds. Skin: No unusual lesions or rashes. No skin breakdown appreciated. Neuro: Awake, alert and oriented 3. Moves all extremities well without hemiparesis or paralysis. No essential tremor is appreciated. Result/EKG - Labs CBC & BMP: 08/03/16 03:59 08/03/16 03:59 Lab Results: I have reviewed the past 24 hour labs Labs: Laboratory Results - last 24 hr 08/02/16 08/03/16 08/03/16 04:30 03:59 03:59 WBC 4.7 RBC 3.38 L Hgb 10.6 L Hct 31.5 L MCV 93.2 MCH 31 MCHC 33.7 RDW 14.4 Plt Count 30 L* D MPV 11.0 Neut % (Auto) 70.6 Lymph % (Auto) 26.4 [place] % (Auto) 1.9 Eos % (Auto) 0.0 Baso % (Auto) 0.2 Neut # (Auto) 3.3 Lymph # (Auto) 1.2 L [place] # (Auto) 0.1 L Eos # (Auto) 0.0 Baso # (Auto) 0.0 Total Counted 100 Immature Gran % 0.9 Nucleated RBC % 0.0 Immature Gran # 0.04 Segmented Neutrophils 85 Band Neutrophils 3 Lymphocytes 11 L Monocytes 1 L Nucleated RBCs 1 Nucleated RBCs # 0.00 Platelet Estimate Decreased Pappenheimer Bodies Taproom Attendant Sodium 134 L Potassium 3.6 Chloride 107 Carbon Dioxide 14 L Anion Gap 16.6 H BUN 32 H Creatinine 1.30 GFR Calculation 55 BUN/Creatinine Ratio 24.00 H Glucose 184 H Calculated Osmolality 279.2 Calcium 6.2 L Free T4 0.91 TSH 3rd Generation 0.782 - Diagnostic Findings Procedure: CT - chest: report reviewed by me - EKG EKG results: interpreted by me EKG shows: sinus rhythm Quality Measures - VTE Contraindication to Pharmacological VTE Prophylaxis: Thrombocytopenia
[2016-08-03] MEDS: DOXYCYCLINE HYCLATE INJ 100 MG in SODIUM CHLORIDE 0.9% 100 ML IV SCH (11:30)
[2016-08-03] MEDS: methylPREDNISolone SOD SUC 125 MG/2 ML VIAL IV SCH (11:30)
[2016-08-03] MEDS: DIGOXIN 0.5 MG/2 ML AMP IV SCH (14:22)
[2016-08-03] MEDS: FAMOTIDINE 20 MG TABLET PO SCH (19:59)
[2016-08-04] MEDS: methylPREDNISolone SOD SUC 125 MG/2 ML VIAL IV SCH ×3 (00:13→23:32)
[2016-08-04] MEDS: DOXYCYCLINE HYCLATE INJ 100 MG in SODIUM CHLORIDE 0.9% 100 ML IV SCH ×3 (00:13→23:32)
[2016-08-04] MEDS: SODIUM CHLORIDE 0.9% 1,000 ML IV SCH ×3 (03:11→21:37)
[2016-08-04] MEDS: ALBUTEROL/IPRATROPIUM 3 ML NEB RESP TX SCH ×4 (05:30→18:52)
[2016-08-04 06:16] LABS: Calcium 6.3 MG/DL (8.5-10.1); Magnesium 2.7 MG/DL (1.8-2.4); Osmolality,Calculated 292.5 MOS/KG (273-304); Potassium 3.6 MMOL/L (3.5-5.1)
[2016-08-04 06:23] LABS: Basophils % 0.2 % (0.0-0.8); Hemoglobin 11.6 GM/DL (14.0-18.0); Immature Granulocytes % 1.1 %; Immature Granulocytes Absolute 0.06 #; Lymphocytes # 1.2 10*3/uL (1.4-4.0); Lymphocytes % 21.6 % (21.2-54.2); Mean Corpuscular HGB Conc 34.1 GM/DL (32-36); Mean Corpuscular Hemoglobin 31 PG (27-34); Mean Corpuscular Volume 91.9 FL (87-102); Mean Platelet Volume 11.7 FL (9.6-12.0); Monocytes # 0.2 10*3/uL (0.11-0.8); Monocytes % 3.7 % (1.7-12.7); Neutrophils # 4.2 10*3/uL (1.4-7.4); Neutrophils % 73.4 % (38.7-73.9); Red Cell Distribution Width 14.3 % (9.3-17.3); White Blood Count 5.7 T/CUMM (4-12)
[2016-08-04 06:38] LABS: Platelet Count 36 T/CUMM (130-400)
[2016-08-04 06:43] LABS: Band Neutrophils 13 % (0-10); Lymphocytes 2 % (20-55); Segmented Neutrophils 82 % (50-85); Total Cells Counted 100
[2016-08-04 06:44] LABS: Hypochromasia Slight; Platelet Estimate Decreased
--- NOTE | 2016-08-04 06:52 | Oncology Progress Note ---
Oncology Subjective PN Interval history: Patient admitted with pancytopenia and evidence of sepsis Blood counts continue to modestly improved. The white cell count 5700. The hemoglobin is 11.6 and the platelet count is 36,000.The patient has a high anion gap I am consulting nephrology. I Rechecked liver function today and his transaminases are up somewhat but this could be due to the severe hypotension. His LDH is 601. His serum calcium is low at 6.5 but his serum albumin is correspondingly low at 1.8. Studies are ehrlichiosis are still pending. We should continue the current steroid therapy until the blood counts have improved significantly, which they have not really done yet. Case discussed with Dr. Luna. He was asking about ethylene glycol poisoning which I doubt is going on. Patient does have acid-base problems but I am concerned about so I will consult nephrology. I am hoping to see a more dramatic rise in his blood counts by tomorrow. We may need to consider a bone marrow biopsy and aspirate if this does not happen. Exam - Constitutional Vitals: Period Temp Pulse Resp BP Sys/Hester Pulse Ox Last 24 Hr 97.2 F-98.3 F 83-117 16-23 92-123/53-69 94-100 Results - Labs CBC & BMP: 08/04/16 04:55 08/04/16 04:56 Quality Measures - VTE Contraindication to Pharmacological VTE Prophylaxis: Thrombocytopenia
[2016-08-04 08:09] LABS: Albumin 1.8 G/DL (3.4-5.0); Bilirubin,Total 0.6 MG/DL (0.2-1.0); Calcium 6.5 MG/DL (8.5-10.1); Osmolality,Calculated 289.7 MOS/KG (273-304); Potassium 3.6 MMOL/L (3.5-5.1); Total Protein 4.4 G/DL (6.4-8.3)
[2016-08-04] MEDS: ASCORBIC ACID 500 MG TABLET PO SCH ×2 (09:27→21:33)
[2016-08-04] MEDS: FLUCONAZOLE 100 MG TABLET PO SCH (09:28)
[2016-08-04] MEDS: PANTOPRAZOLE 40 MG TABLET PO SCH (09:28)
[2016-08-04] MEDS: TAMSULOSIN 0.4 MG CAPSULE PO SCH (09:28)
[2016-08-04] MEDS: CLOTRIMAZOLE 10 MG TROCHE PO SCH ×4 (09:32→21:33)
--- NOTE | 2016-08-04 09:51 | Infectious Disease Progress ---
Assessment and Plan (1) Candidiasis of mouth Status: Acute Assessment and plan: Almost resolved with fluconazole Current Visit: Yes (2) Fever Status: Deleted Assessment and plan: Possibly due to tickborne illness versus nonspecific viral illness, and associated with thrombocytopenia and neutropenia and mild transaminitis. The neutropenia has resolved and the thrombocytopenia has incrementally improved. Afebrile for over 48 hours. Continue with empiric doxycycline and follow-up pending results. Current Visit: Yes (3) Hypotension Status: Acute Assessment and plan: Probably related to sepsis, resolved. Current Visit: Yes (4) Sepsis Status: Acute Assessment and plan: No obvious source yet, on empiric therapy for rickettsial illness versus ehrlichiosis. Continue with empiric doxycycline. Current Visit: Yes (5) Strep pharyngitis Status: Resolved Assessment and plan: Treated on admission. Droplet precautions no longer indicated. Current Visit: Yes (6) Thrombocytopenia Status: Acute Current Visit: Yes (7) Toxoplasma chorioretinitis, left Status: Chronic Assessment and plan: Inactive per ophthalmology discussed treatment not currently indicated. Current Visit: Yes Infectious Disease - PN: Subj Interval history: Patient now out of ICU. He is feeling incrementally better, no fever now for 48 hours. His appetite slightly better. Is concerned about swelling of his legs but that has improved since yesterday. Infectious Disease Exam (PN) - Constitutional Vitals: Temp Pulse Resp BP Pulse Ox 97.5 F L 97 H 20 119/58 94 L 08/04/16 08:00 08/04/16 08:00 08/04/16 08:00 08/04/16 08:00 08/04/16 08:00 General appearance: normal weight, no acute distress Exam: General appearance: Alert and sitting on side of bed - Eye Eye exam: Present: EOMI. no icterus Pupils: Present: VERNA - ENT ENT exam: Almost resolved whitish exudates on bucca mucosa - Neck Neck exam: supple, no lymphadenopathy - Respiratory Respiratory exam: vesicular BS decreased in bases, no crepitations or wheezes - Cardiovascular Cardiovascular exam: regular rate and rhythm, no murmurs - GI/Abdominal GI/Abdominal exam: normal bowel sounds, soft, non-tender, no organomegaly or mass - Extremities Exam Extremities exam: Peripheral edema present, slightly improved from yesterday - Skin Skin exam: no rash Results - Labs CBC & BMP: 08/04/16 04:55 08/04/16 04:56 Lab Results: I have reviewed the past 24 hour labs Quality Measures - VTE Contraindication to Pharmacological VTE Prophylaxis: Thrombocytopenia
[2016-08-04] MEDS ORDERED: POTASSIUM CHLORIDE 20 MEQ TABLET PO ONE (12:03)
--- NOTE | 2016-08-04 12:44 | Cardiology Progress Note ---
Assessment and Plan (1) Atrial fibrillation with rapid ventricular response Status: Acute Assessment and plan: SEE PLAN OF CARE LISTED BELOW Current Visit: Yes (2) Toxoplasma chorioretinitis, left Status: Chronic Assessment and plan: SEE PLAN OF CARE LISTED BELOW Current Visit: Yes (3) Sleep apnea in adult Status: Chronic Assessment and plan: SEE PLAN OF CARE LISTED BELOW Current Visit: No (4) Fatigue Status: Acute Assessment and plan: SEE PLAN OF CARE LISTED BELOW Current Visit: Yes (5) Sepsis Status: Acute Assessment and plan: SEE PLAN OF CARE LISTED BELOW Current Visit: Yes (6) Hypotension Status: Acute Assessment and plan: SEE PLAN OF CARE LISTED BELOW Current Visit: Yes (7) Acute idiopathic thrombocytopenic purpura Status: Acute Assessment and plan: SEE PLAN OF CARE LISTED BELOW Current Visit: Yes (8) Pneumonia Status: Deleted Assessment and plan: SEE PLAN OF CARE LISTED BELOW Current Visit: Yes Qualifiers: Pneumonia type: due to unspecified organism (9) Strep pharyngitis Status: Resolved Assessment and plan: SEE PLAN OF CARE LISTED BELOW Current Visit: Yes Cardiology - PN: Subj Interval history: 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 Tirado, 85WM, presented to the emergency department at [facility] July 29, 2016 with complaints of flulike symptoms, weakness and body aches. No prior cardiac history is noted. Patient was referred to the ER after being evaluated in outlying clinic with the same complaints. He was found to be thrombocytopenic and he was admitted for further workup to include possible sepsis. He was found to be positive for strep. Chest x-ray revealed possible pneumonia and he is being treated for this. 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 He was previously treated with Bactrim outpatient which may have contributed to or caused his thrombocytopenia. Dr. Morales has evaluated patient and is concerned he may have a tickborne illness. He is currently being worked up for this as well. Cardiology was consulted for new onset of atrial fibrillation. Initially, IV diltiazem was initiated and his heart rate came under better control. Unfortunately, increasing dose of Diltiazem has been difficult due to hypotension. Digoxin was initiated. Echo reveals EF 60%, RA enlargement noted. CT Chest negative for PE. AUGUST 03, 2016: Overnight, blood pressure has improved. He is still receiving Cardizem 5 mg/h as well as digoxin 0.125 mg IV daily. Heart rate has improved but averages around 90 - 105 bpm. There was discussion regarding the possibility of cardioversion however, since he is tolerating the atrial fibrillation medical management will ensue at this time. He is also currently being empirically treated for rickettsial illness versus ehrlichiosis. Platelets are 30,000 this morning. I will add a magnesium to his daily labs. Potassium is 3.6 and will give a dose of potassium this morning. AUGUST 04, 2016: Patient has been moved to telemetry overnight. His atrial fibrillation is rate controlled. He denies chest pain, heaviness or tightness. His platelet count has improved to 36. His white blood cell count has also improved to 5.7. Digoxin was added Tuesday and his heart rate has improved. We will continue to follow along closely. He is slowly improving. Back in NSR. Continues to take Vitamin C. Had a wide complex rhythm briefly earlier. Will continue to monitor. Transition to oral CCB today ASSESSMENT/PLAN: 1. ATRIAL FIB WITH RVR - new onset Tuesday. Transitioning to oral diltiazem today and stopping IV. Due to thrombocytopenia, not a candidate for anticoagulation. 2. HYPOTENSION - resolved. 3. SEPSIS - being aggresively treated. Improving. 4. THROMBOCYTOPENIA - continue close monitoring 5. COMMUNITY ACQUIRED PNEUMONIA - being treated appropriately 6. SLEEP APNEA - using CPAP device 7. STREP PHARYNGITIS - has received appropriate treatment Exam (Progress Note) - Constitutional Vitals: Period Temp Pulse Resp BP Sys/Hester Pulse Ox Last 24 Hr 97.0 F-98.3 F 72-105 16-21 95-123/53-69 94-100 Result/EKG - Labs CBC & BMP: 08/04/16 04:55 08/04/16 04:56 Labs: Laboratory Results - last 24 hr 08/04/16 08/04/16 08/04/16 04:55 04:55 04:56 WBC 5.7 RBC 3.70 L Hgb 11.6 L Hct 34.0 L MCV 91.9 MCH 31 MCHC 34.1 RDW 14.3 Plt Count 36 L* MPV 11.7 Neut % (Auto) 73.4 Lymph % (Auto) 21.6 [place] % (Auto) 3.7 Eos % (Auto) 0.0 Baso % (Auto) 0.2 Neut # (Auto) 4.2 Lymph # (Auto) 1.2 L [place] # (Auto) 0.2 Eos # (Auto) 0.0 Baso # (Auto) 0.0 Total Counted 100 Immature Gran % 1.1 Nucleated RBC % 0.0 Immature Gran # 0.06 Segmented Neutrophils 82 Band Neutrophils 13 H Lymphocytes 2 L Monocytes 3 Nucleated RBCs # 0.00 Platelet Estimate Decreased Hypochromasia Slight Sodium 139 Potassium 3.6 Chloride 112 H Carbon Dioxide 15 L Anion Gap 15.6 H BUN 31 H Creatinine 1.30 GFR Calculation 55 BUN/Creatinine Ratio 23.00 H Glucose 255 H Calculated Osmolality 292.5 Calcium 6.3 L Magnesium 2.7 H Total Bilirubin AST ALT Alkaline Phosphatase Lactate Dehydrogenase Total Protein Albumin Globulin Albumin/Globulin Ratio Digoxin 1.00 08/04/16 04:56 WBC RBC Hgb Hct MCV MCH MCHC RDW Plt Count MPV Neut % (Auto) Lymph % (Auto) [place] % (Auto) Eos % (Auto) Baso % (Auto) Neut # (Auto) Lymph # (Auto) [place] # (Auto) Eos # (Auto) Baso # (Auto) Total Counted Immature Gran % Nucleated RBC % Immature Gran # Segmented Neutrophils Band Neutrophils Lymphocytes Monocytes Nucleated RBCs # Platelet Estimate Hypochromasia Sodium 138 Potassium 3.6 Chloride 111 H Carbon Dioxide 14 L Anion Gap 16.6 H BUN 32 H Creatinine 1.20 GFR Calculation 61 BUN/Creatinine Ratio 26.00 H Glucose 249 H Calculated Osmolality 289.7 Calcium 6.5 L Magnesium Total Bilirubin 0.60 AST 134 H ALT 88 H Alkaline Phosphatase 94 Lactate Dehydrogenase 601 H Total Protein 4.4 L Albumin 1.8 L Globulin 2.6 Albumin/Globulin Ratio 0.6 L Digoxin Quality Measures - VTE Contraindication to Pharmacological VTE Prophylaxis: Thrombocytopenia
[2016-08-04] MEDS: DILTIAZEM 30 MG TABLET PO SCH ×3 (13:10→21:33)
[2016-08-04] MEDS: DIGOXIN 0.5 MG/2 ML AMP IV SCH (13:11)
--- NOTE | 2016-08-04 14:05 | Nephrology Consult Note ---
History of Present Illness Chief complaint: metabolic acidosis History of present illness: Mr. Tirado is a 85 year old male admitted with myalgias and fatigue. He was being treated for toxoplasmosis chorioretinitis with Bactrim prior to admission. He developed thrombocytopenia. He is currently being treated with doxycycline for possible tickborne illness. He had an elevated lactic acid level on admission. He has had a persistent mild metabolic acidosis. On questioning, he has urinary frequency hesitancy and nocturia. He has no dysuria or hematuria. Creatinine has been normal. Home Medications Medication Instructions Recorded Confirmed Type Hyoscyamine Sulfate [Oscimin] 1 tablet SL DIRECTED 07/29/16 07/29/16 History Sildenafil Citrate [Viagra] 1 tablet PO DIRECTED 07/29/16 07/29/16 History Tamsulosin HCl [Tamsulosin HCl] 1 capsule PO DAILY 07/29/16 07/29/16 History Allergies Allergy/AdvReac Type Severity Reaction Status Date / Time No Known Allergies Allergy Verified 03/17/16 06:27 Medical,Surgical,& Family Hx - Medical History Cardio: No history of: Cardiac Dysrhythmia, CAD, MA Neurology: History of: Vertigo (past history) No history of: Seizures HEENT: History of: 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, glasses) Endocrine: History of: Dyslipidemia (pt states he is not taking medication) Respiratory: History of: Bronchitis (chronic), Obstructive Sleep Apnea (cpap) Gastrointestinal: History of: GERD Musculoskeletal: History of: Musculoskeletal Problems (degenerative arthritis) Other: History of: Cancer (skin cancer face) No history of: Anesthesia Reactions - Surgical History HEENT Surgeries: Surgical HX of: Eye Surgery (COS) Abdominal Surgeries: Surgical HX of: Cholecystectomy (05/02/15), Colonoscopy, EGD Orthopedic Surgeries: Surgical HX of;: Orthopedic Surgery (carpal tunnel bilateral), Total Hip Replacement (right 2006) - Family History Family History: Reports;: Family Heart Disease (father) - Social History Smoking Status: Never smoker Frequency of Alcohol Use: None Type of Drug Use: None Review of Systems 12 point system: reviewed and no additional remarkable complaints except as stated Exam - Vital Signs Vital signs: Period Temp Pulse Resp BP Sys/Hester Pulse Ox Last 24 Hr 97.0 F-98.3 F 72-105 16-21 97-123/53-69 94-100 Exam: Gen.: Alert and oriented x3. ENT: Pupils equal round reactive to light. EOMs intact. Mucous membranes moist. Neck: Supple. No JVD or bruit. Cardiovascular: Regular rate and rhythm. No murmur rub or gallop Lungs: Clear Abdomen: Soft. Nontender. Positive bowel sounds. No organomegaly Extremities: Trace edema Results - Labs CBC & BMP: 08/04/16 04:55 08/04/16 04:56 Assessment and Plan (1) Metabolic acidosis Status: Acute Assessment and plan: 85-year-old man admitted with: * Toxoplasmosis chorioretinitis. Followed by ophthalmology * Febrile illness. Currently on doxycycline. Followed by ID * Metabolic acidosis. Lactic acid was elevated on admission. This will be repeated. Anion gap is mildly elevated. I do not strongly suspect toxic ingestion. However osmolar gap will be measured. Urine electrolytes to rule out RTA ordered * Urinary hesitancy and nocturia. Renal ultrasound to rule out obstruction * A. fib with RVR. Now in NSR after treatment * Thrombocytopenia Current Visit: Yes (2) Pleural effusion Status: Acute Current Visit: Yes (3) Atrial fibrillation with rapid ventricular response Status: Acute Current Visit: Yes (4) Thrombocytopenia Status: Acute Current Visit: Yes (5) Toxoplasma chorioretinitis, left Status: Chronic Current Visit: Yes (6) Strep pharyngitis Status: Resolved Current Visit: Yes
--- NOTE | 2016-08-04 17:07 | Hospitalist Progress Note ---
Assessment and Plan (1) Sepsis Status: Acute Assessment and plan: 1)ID- sepsis from likely tickborne illness. Strep throat also present on admission. Day 3 of Doxycycline. Afebrile for 48 hours, BP also remains in normal range. sepsis resolving. 2)adrenal linsufficiency- on steroids. 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 Multiple possible causes of low platelets including tick illness, sepsis, bactrim which he took per admission. 5)encephalopathy-CT brain ok, no more confusion, this is resolved. 6)rapid afib- resolved, now in NSR. on vit C, oral CCB. wide QRS rhtyhm briefly earlier, cards aware. 7)nutrition- appetite improving 8)dispo- he wants to go home but understands he is not ready. Get PT to eval his strength. 9)toxoplasma chorioretinitis 10)metabolic acidosis with decreased bicarb over last few days- creatinine ok, lactic acid normalized on recheck, no history of ingestion when I asked him a few days ago and no suspicion on my part that he would intentionally take something. Dr Pastor consulted Dr Crawford, urine lytes pending to r/o RTA. Current Visit: Yes (2) Secondary adrenal insufficiency Status: Acute Current Visit: Yes (3) Toxoplasma chorioretinitis, left Status: Chronic Current Visit: Yes (4) Acid reflux Status: Chronic Current Visit: Yes (5) Sleep apnea in adult Status: Chronic Current Visit: No (6) Candidiasis of mouth Status: Acute Current Visit: Yes (7) Fatigue Status: Acute Current Visit: Yes (8) Hypotension Status: Acute Current Visit: Yes (9) Acute idiopathic thrombocytopenic purpura Status: Acute Current Visit: Yes (10) Strep pharyngitis Status: Resolved Current Visit: Yes (11) Encephalopathy Status: Resolved Current Visit: Yes Hospitalist: Subjective Interval history: Mr Tirado is feeling better today. He is up in the chair and his throat still hurts but not as bad as yesterday. He wants to get up adn out of the hosptial and is frustrated that he fatigued after getting up a bit. His daughter is here and her questions were also answered. Exam - Constitutional Vitals: Period Temp Pulse Resp BP Sys/Hester Pulse Ox Last 24 Hr 97.0 F-98.3 F 72-103 16-21 97-129/53-69 94-100 General appearance: normal weight, no acute distress - Head Head exam: Present: normocephalic, atraumatic - Eye Eye exam: Present: EOMI. Absent: scleral icterus - ENT ENT exam: Present: normal oropharynx (no longer very dry as on Tuesday, difficult to see back of throat, can no longer see thrush) - Respiratory Respiratory exam: Present: clear to auscultation bilaterally - Cardiovascular Cardiovascular exam: Present: regular rate and rhythm - GI/Abdominal GI/Abdominal exam: Present: normal bowel sounds, soft. Absent: tenderness - Extremities Exam Extremities exam: Present: edema (trace) - Neurological Exam Neurological exam: Present: alert, oriented X3, CN II-XII intact. Absent: motor sensory deficit - Skin Skin exam: Present: warm, dry. Absent: petechiae, rash Results - Labs CBC & BMP: 08/04/16 04:55 08/04/16 04:56 Lab Results: I have reviewed the past 24 hour labs Quality Measures - VTE Contraindication to Pharmacological VTE Prophylaxis: Thrombocytopenia
[2016-08-04] MEDS: FAMOTIDINE 20 MG TABLET PO SCH (21:33)
[2016-08-05] MEDS: ALBUTEROL/IPRATROPIUM 3 ML NEB RESP TX SCH ×4 (00:50→18:51)
[2016-08-05 05:54] LABS: Immature Granulocytes % 2.5 %; Immature Granulocytes Absolute 0.11 #; Lymphocytes % 23.4 % (21.2-54.2); Mean Corpuscular HGB Conc 34.5 GM/DL (32-36); Mean Corpuscular Hemoglobin 32 PG (27-34); Mean Corpuscular Volume 91.8 FL (87-102); Mean Platelet Volume 11.1 FL (9.6-12.0); Monocytes # 0.2 10*3/uL (0.11-0.8); Monocytes % 4.8 % (1.7-12.7); Neutrophils % 69.3 % (38.7-73.9); Platelet Count 40 T/CUMM (130-400); Red Blood Count 3.16 MC/CUMM (3.8-5.5); Red Cell Distribution Width 14.2 % (9.3-17.3); White Blood Count 4.4 T/CUMM (4-12)
[2016-08-05 06:22] LABS: Lymphocytes 2 % (20-55); Metamyelocytes 1 %; Myelocytes 2 %; Segmented Neutrophils 90 % (50-85)
[2016-08-05 06:23] LABS: Calcium 6.5 MG/DL (8.5-10.1); Osmolality,Calculated 298.1 MOS/KG (273-304); Platelet Estimate Decreased; Potassium 4.1 MMOL/L (3.5-5.1); Total Cells Counted 100
[2016-08-05 06:26] LABS: Albumin 1.7 G/DL (3.4-5.0); Bilirubin,Total 0.9 MG/DL (0.2-1.0); Calcium 6.5 MG/DL (8.5-10.1); Osmolality,Calculated 297.3 MOS/KG (273-304); Potassium 4.3 MMOL/L (3.5-5.1); Total Protein 4.3 G/DL (6.4-8.3)
--- NOTE | 2016-08-05 06:47 | Oncology Progress Note ---
Oncology Subjective PN Interval history: Lab work for today includes a white cell count of 4400 with a platelet count is up to 40,000. The MPV is in normal range at 11.1. The hemoglobin is 10.0. We are still awaiting the test for ehrlichiosis. Once the platelet count rises above 50,000, I think we can start to taper the Solu-Medrol. Dr. Crawford has seen her in consultation and I appreciate his input. If the studies for infectious agents remain nondiagnostic, I would certainly consider alternatives to sulfa drug therapy for treatment of this patient in the future. He is still coughing and producing sputum. He asked about a repeat sputum culture. On physical examination, he appears acutely ill but actually is in no acute distress presently. Eyes: Normal lids and conjunctivae. Lungs: Breath sounds are slightly coarse and I hear dependent rales bilaterally. Actually the rales are crackling and extend up almost to the lung apices. Cardiovascular: His heart rhythm is regular without murmur, gallop or rub. There is no jugular venous distention, clubbing or cyanosis. Neurologic: Cranial nerves II through XII are intact. There are no focal neurologic deficits. Musculoskeletal: He remains extremely weak. Recommendation: Continue Solu-Medrol at current dose until his blood counts improve a little bit further and then begin tapering. Exam - Constitutional Vitals: Period Temp Pulse Resp BP Sys/Hester Pulse Ox Last 24 Hr 96.7 F-98.2 F 68-97 16-20 101-129/58-68 94-99 Results - Labs CBC & BMP: 08/05/16 05:30 08/05/16 05:30 Quality Measures - VTE Contraindication to Pharmacological VTE Prophylaxis: Thrombocytopenia
--- NOTE | 2016-08-05 09:30 | Infectious Disease Progress ---
Assessment and Plan (1) Candidiasis of mouth Status: Acute Assessment and plan: resolved with fluconazole Current Visit: Yes (2) Fever Status: Deleted Assessment and plan: Possibly due to tickborne illness versus nonspecific viral illness, and associated with thrombocytopenia and neutropenia and mild transaminitis. The neutropenia has resolved and the thrombocytopenia is slowly improving. Afebrile for over 72 hours. Continue with empiric doxycycline and follow-up pending results. Doxycycline can be switched to oral at any time would probably do this tomorrow once he is eating better. Current Visit: Yes (3) Hypotension Status: Acute Assessment and plan: Probably related to sepsis, resolved. Current Visit: Yes (4) Sepsis Status: Acute Assessment and plan: No obvious source yet, on empiric therapy for rickettsial illness versus ehrlichiosis. Continue with empiric doxycycline. Current Visit: Yes (5) Strep pharyngitis Status: Resolved Assessment and plan: Treated on admission. Droplet precautions no longer indicated. Current Visit: Yes (6) Thrombocytopenia Status: Acute Current Visit: Yes (7) Toxoplasma chorioretinitis, left Status: Chronic Assessment and plan: Inactive per ophthalmology discussed treatment not currently indicated. Current Visit: Yes Infectious Disease - PN: Subj Interval history: Patient remains afebrile for 3 days now. His appetite is improving slowly, no more nausea no vomiting no diarrhea he was constipated but that has resolved. He says his throat is still sore, no cough but he feels as if he has some crackles when he breathes he tells me. Still leg swelling. Infectious Disease Exam (PN) - Constitutional Vitals: Temp Pulse Resp BP Pulse Ox 97.5 F L 83 20 112/62 96 08/05/16 08:00 08/05/16 08:00 08/05/16 08:00 08/05/16 08:00 08/05/16 08:00 General appearance: normal weight, no acute distress Exam: General appearance: Alert and sitting in chair - Eye Eye exam: Present: EOMI. no icterus Pupils: Present: VERNA - ENT ENT exam: Resolved whitish exudates on bucca mucosa - Respiratory Respiratory exam: vesicular BS decreased in bases, no crepitations or wheezes heard - Cardiovascular Cardiovascular exam: regular rate and rhythm, no murmurs - GI/Abdominal GI/Abdominal exam: normal bowel sounds, soft, non-tender, no organomegaly or mass - Extremities Exam Extremities exam: Moderate bilateral leg edema - Skin Skin exam: no rash Results - Labs CBC & BMP: 08/05/16 05:30 08/05/16 05:30 Lab Results: I have reviewed the past 24 hour labs (Ehrlichia and rickettsial serology still pending, thrombocytopenia improving) Quality Measures - VTE Contraindication to Pharmacological VTE Prophylaxis: Thrombocytopenia
[2016-08-05] MEDS: TAMSULOSIN 0.4 MG CAPSULE PO SCH (10:15)
[2016-08-05] MEDS: PANTOPRAZOLE 40 MG TABLET PO SCH (10:15)
[2016-08-05] MEDS: ASCORBIC ACID 500 MG TABLET PO SCH ×2 (10:15→21:08)
[2016-08-05] MEDS: FLUCONAZOLE 100 MG TABLET PO SCH (10:15)
[2016-08-05] MEDS: DILTIAZEM 30 MG TABLET PO SCH ×3 (10:15→21:08)
[2016-08-05] MEDS: CLOTRIMAZOLE 10 MG TROCHE PO SCH ×4 (10:15→21:08)
[2016-08-05] MEDS: SODIUM CHLORIDE 0.9% 1,000 ML IV SCH (10:17)
[2016-08-05] MEDS ORDERED: FUROSEMIDE 20 MG/2 ML VIAL IV ONE (10:53)
--- NOTE | 2016-08-05 11:21 | Cardiology Progress Note ---
Assessment and Plan (1) Atrial fibrillation with rapid ventricular response Status: Acute Assessment and plan: New onset Tuesday. Yesterday, patient converted back to normal sinus rhythm. Transitioned to oral diltiazem yesterday. Remains in normal sinus rhythm this morning. Continue current plan of care. Due to thrombocytopenia, not a candidate for anticoagulation. Current Visit: Yes (2) Acute idiopathic thrombocytopenic purpura Status: Acute Assessment and plan: Management per oncology. Continue to monitor closely. Current Visit: Yes (3) Sepsis Status: Acute Assessment and plan: Management per infectious disease. Current Visit: Yes (4) Toxoplasma chorioretinitis, left Status: Acute Assessment and plan: Management per infectious disease. Current Visit: Yes (5) Strep pharyngitis Status: Resolved Assessment and plan: Has received appropriate treatment for this. Current Visit: Yes (6) Sleep apnea in adult Status: Chronic Assessment and plan: Continue current plan of care with CPAP nightly. Current Visit: No (7) Pneumonia Status: Acute Assessment and plan: Continue current plan of care. Current Visit: Yes Cardiology - PN: Subj Interval history: STATISTICAL METHODS PROFESSOR: DR. KAY (NEW) Mr. Tirado, 85WM, presented to the emergency department at [facility] July 29, 2016 with complaints of flulike symptoms, weakness and body aches. No prior cardiac history is noted. Patient was referred to the ER after being evaluated in outlying clinic with the same complaints. He was found to be thrombocytopenic and he was admitted for further workup to include possible sepsis. He was found to be positive for strep. Chest x-ray revealed possible pneumonia and he is being treated for this. 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 He was previously treated with Bactrim outpatient which may have contributed to or caused his thrombocytopenia. Dr. Morales has evaluated patient and is concerned he may have a tickborne illness. He is currently being worked up for this as well. Cardiology was consulted for new onset of atrial fibrillation. Initially, IV diltiazem was initiated and his heart rate came under better control. Unfortunately, increasing dose of Diltiazem has been difficult due to hypotension. Digoxin was initiated. Echo reveals EF 60%, RA enlargement noted. CT Chest negative for PE. AUGUST 03, 2016: Overnight, blood pressure has improved. He is still receiving Cardizem 5 mg/h as well as digoxin 0.125 mg IV daily. Heart rate has improved but averages around 90 - 105 bpm. There was discussion regarding the possibility of cardioversion however, since he is tolerating the atrial fibrillation medical management will ensue at this time. He is also currently being empirically treated for rickettsial illness versus ehrlichiosis. Platelets are 30,000 this morning. I will add a magnesium to his daily labs. Potassium is 3.6 and will give a dose of potassium this morning. AUGUST 04, 2016: Patient has been moved to telemetry overnight. His atrial fibrillation is rate controlled. He denies chest pain, heaviness or tightness. His platelet count has improved to 36. His white blood cell count has also improved to 5.7. Digoxin was added Tuesday and his heart rate has improved. We will continue to follow along closely. He is slowly improving. Back in NSR. Continues to take Vitamin C. Had a wide complex rhythm briefly earlier. Will continue to monitor. Transition to oral CCB today August 05, 2016: Patient seen and examined on the telemetry floor. He is doing well from a cardiac standpoint. He converted to normal sinus rhythm yesterday. Today, he remains in sinus rhythm with heart rates in the 70s without any overt arrhythmias or ectopy noted. He was transitioned to oral Cardizem yesterday and digoxin was added on Tuesday. He is tolerating these well. Vital signs are stable. Platelets are slightly improving. Today counseled to be 40. Oncology is following. Patient reports that he may be getting transferred to a rehab center later today or early tomorrow morning. Further plan an addendum to follow per Dr. Kay. Exam (Progress Note) - Constitutional Vitals: Period Temp Pulse Resp BP Sys/Hester Pulse Ox Last 24 Hr 96.7 F-98.2 F 68-85 16-20 101-129/58-68 94-99 Exam: General: [Appears well with no apparent distress.] [Pleasant and cooperative. ] [Appears comfortable.] HEENT: [PERRL, normocephalic, atraumatic. Mucous membranes moist. No jaundice noted. Conjunctiva moist and clear, sclerae anicteric] Neck: No obvious JVD/HJR, no thyromegaly or lymphadenopathy noted. No carotid bruit appreciated Cardiac: [Regular rate and rhythm. S1 and S2. Controlled rate. [No obvious murmur rub or gallop.] Lungs: Minimal wheezing noted throughout. Continues to use oxygen via nasal cannula. Abdomen: Soft, bowel sounds normoactive. Nontender and nondistended. No abdominal bruit or thrill noted. No masses noted. Musculoskeletal: No fluid collection. Decreased range of motion is noted. Extremities: No clubbing, cyanosis noted. [ No edema noted.] Upper extremity pulses 2+. Lower extremity pulses 2+. Capillary refill less than 3 seconds. Skin: No unusual lesions or rashes. No skin breakdown appreciated. Neuro: Awake, alert and oriented 3. Moves all extremities well without hemiparesis or paralysis. No essential tremor is appreciated. Result/EKG - Labs CBC & BMP: 08/05/16 05:30 08/05/16 05:30 Lab Results: I have reviewed the past 24 hour labs Labs: Laboratory Results - last 24 hr 08/02/16 08/04/16 08/04/16 11:53 13:51 14:17 WBC RBC Hgb Hct MCV MCH MCHC RDW Plt Count MPV Neut % (Auto) Lymph % (Auto) [place] % (Auto) Eos % (Auto) Baso % (Auto) Neut # (Auto) Lymph # (Auto) [place] # (Auto) Eos # (Auto) Baso # (Auto) Total Counted Immature Gran % Nucleated RBC % Immature Gran # Segmented Neutrophils Lymphocytes Monocytes Metamyelocytes Myelocytes Nucleated RBCs # Platelet Estimate Sodium Potassium Chloride Carbon Dioxide Anion Gap BUN Creatinine GFR Calculation BUN/Creatinine Ratio Glucose Serum Osmolality 296 H Calculated Osmolality Lactic Acid Calcium Total Bilirubin AST ALT Alkaline Phosphatase Lactate Dehydrogenase Total Protein Albumin Globulin Albumin/Globulin Ratio Urine Osmolality 552 Ur Random Sodium Ur Random Potassium Ur Random Chloride Urine Random Arsenic < 15 Urine Random Cadmium 2.5 H Urine Random Lead < 1 Urine Random Mercury 1 08/04/16 08/04/16 08/04/16 Unknown Unknown Unknown WBC RBC Hgb Hct MCV MCH MCHC RDW Plt Count MPV Neut % (Auto) Lymph % (Auto) [place] % (Auto) Eos % (Auto) Baso % (Auto) Neut # (Auto) Lymph # (Auto) [place] # (Auto) Eos # (Auto) Baso # (Auto) Total Counted Immature Gran % Nucleated RBC % Immature Gran # Segmented Neutrophils Lymphocytes Monocytes Metamyelocytes Myelocytes Nucleated RBCs # Platelet Estimate Sodium Potassium Chloride Carbon Dioxide Anion Gap BUN Creatinine GFR Calculation BUN/Creatinine Ratio Glucose Serum Osmolality Calculated Osmolality Lactic Acid Calcium Total Bilirubin AST ALT Alkaline Phosphatase Lactate Dehydrogenase Total Protein Albumin Globulin Albumin/Globulin Ratio Urine Osmolality Ur Random Sodium 16.0 Ur Random Potassium 17 Ur Random Chloride 40 Urine Random Arsenic Urine Random Cadmium Urine Random Lead Urine Random Mercury 08/05/16 08/05/16 08/05/16 05:30 05:30 05:30 WBC 4.4 RBC 3.16 L Hgb 10.0 L Hct 29.0 L MCV 91.8 MCH 32 MCHC 34.5 RDW 14.2 Plt Count 40 L MPV 11.1 Neut % (Auto) 69.3 Lymph % (Auto) 23.4 [place] % (Auto) 4.8 Eos % (Auto) 0.0 Baso % (Auto) 0.0 Neut # (Auto) 3.0 Lymph # (Auto) 1.0 L [place] # (Auto) 0.2 Eos # (Auto) 0.0 Baso # (Auto) 0.0 Total Counted 100 Immature Gran % 2.5 Nucleated RBC % 0.0 Immature Gran # 0.11 Segmented Neutrophils 90 H Lymphocytes 2 L Monocytes 5 Metamyelocytes 1 Myelocytes 2 Nucleated RBCs # 0.00 Platelet Estimate Decreased Sodium 142 141 Potassium 4.1 4.3 Chloride 114 H 114 H Carbon Dioxide 16 L 16 L Anion Gap 16.1 H 15.3 H BUN 30 H 31 H Creatinine 1.10 1.10 GFR Calculation 68 68 BUN/Creatinine Ratio 27.00 H 28.00 H Glucose 281 H 273 H Serum Osmolality Calculated Osmolality 298.1 297.3 Lactic Acid Calcium 6.5 L 6.5 L Total Bilirubin 0.90 AST 94 H ALT 80 H Alkaline Phosphatase 86 Lactate Dehydrogenase 555 H Total Protein 4.3 L Albumin 1.7 L Globulin 2.6 Albumin/Globulin Ratio 0.6 L Urine Osmolality Ur Random Sodium Ur Random Potassium Ur Random Chloride Urine Random Arsenic Urine Random Cadmium Urine Random Lead Urine Random Mercury 08/05/16 05:30 WBC RBC Hgb Hct MCV MCH MCHC RDW Plt Count MPV Neut % (Auto) Lymph % (Auto) [place] % (Auto) Eos % (Auto) Baso % (Auto) Neut # (Auto) Lymph # (Auto) [place] # (Auto) Eos # (Auto) Baso # (Auto) Total Counted Immature Gran % Nucleated RBC % Immature Gran # Segmented Neutrophils Lymphocytes Monocytes Metamyelocytes Myelocytes Nucleated RBCs # Platelet Estimate Sodium Potassium Chloride Carbon Dioxide Anion Gap BUN Creatinine GFR Calculation BUN/Creatinine Ratio Glucose Serum Osmolality Calculated Osmolality Lactic Acid 2.3 H Calcium Total Bilirubin AST ALT Alkaline Phosphatase Lactate Dehydrogenase Total Protein Albumin Globulin Albumin/Globulin Ratio Urine Osmolality Ur Random Sodium Ur Random Potassium Ur Random Chloride Urine Random Arsenic Urine Random Cadmium Urine Random Lead Urine Random Mercury Quality Measures - VTE Contraindication to Pharmacological VTE Prophylaxis: Thrombocytopenia
[2016-08-05] MEDS: methylPREDNISolone SOD SUC 125 MG/2 ML VIAL IV SCH ×2 (11:47→23:44)
[2016-08-05] MEDS: DOXYCYCLINE HYCLATE INJ 100 MG in SODIUM CHLORIDE 0.9% 100 ML IV SCH ×2 (11:48→23:44)
--- NOTE | 2016-08-05 12:19 | Hospitalist Progress Note ---
Assessment and Plan (1) Sepsis Status: Acute Assessment and plan: 1)ID- sepsis from likely tickborne illness. Strep throat also present on admission. Day 4 of Doxycycline. Afebrile for 72 hours, BP also remains in normal range, platelets recovering. can change to oral antibiotics tomorrow. sepsis resolving. 2)adrenal linsufficiency- on steroids. will taper when platelets allow 3)oral thrush 4)thrombocytopenia- ITP- on steroids and a dose of leucovorin, platelets are definitely better today (now 40,000) as is his WBC. Multiple possible causes of low platelets including tick illness, sepsis, bactrim which he took per admission. 5)encephalopathy-CT brain ok, no more confusion, this is resolved. 6)rapid afib- resolved, now in NSR. on vit C, oral CCB. wide QRS rhtyhm briefly earlier, cards aware. 7)nutrition- appetite improving 8)dispo- he wants to go home but understands he is not ready. arranging for swing bed. 9)toxoplasma chorioretinitis 10)metabolic acidosis with decreased bicarb over last few days- creatinine ok, lactic acid normalized on recheck, no history of ingestion when I asked him a few days ago and no suspicion on my part that he would intentionally take something. Dr Pastor consulted Dr Crawford, urine lytes pending to r/o RTA. 11)edema- BP stable for several days, will give a dose of lasix to diurese. heplock IV fluids. Current Visit: Yes (2) Secondary adrenal insufficiency Status: Acute Current Visit: Yes (3) Toxoplasma chorioretinitis, left Status: Acute Current Visit: Yes (4) Acid reflux Status: Chronic Current Visit: Yes (5) Sleep apnea in adult Status: Chronic Current Visit: No (6) Candidiasis of mouth Status: Acute Current Visit: Yes (7) Fatigue Status: Acute Current Visit: Yes (8) Hypotension Status: Acute Current Visit: Yes (9) Acute idiopathic thrombocytopenic purpura Status: Acute Current Visit: Yes (10) Strep pharyngitis Status: Resolved Current Visit: Yes (11) Encephalopathy Status: Resolved Current Visit: Yes Hospitalist: Subjective Interval history: Mr Tirado is up in the chair as was able to take a shower this morning. He is eating better though not as usual. His throat is not quite as sore as it was. He rested well. He is discussing his swing bed arrangements with , and will go to [place], but not likely tomorrow. I think his platelets should be a little higher before he goes. Exam - Constitutional Vitals: Period Temp Pulse Resp BP Sys/Hester Pulse Ox Last 24 Hr 96.7 F-98.2 F 68-85 16-20 106-129/60-79 94-99 General appearance: normal weight, no acute distress - Head Head exam: Present: normocephalic, atraumatic - Eye Eye exam: Absent: conjunctival injection, scleral icterus - Respiratory Respiratory exam: Present: rales (some rales at bases) - Cardiovascular Cardiovascular exam: Present: regular rate and rhythm - GI/Abdominal GI/Abdominal exam: Present: normal bowel sounds, soft. Absent: tenderness - Extremities Exam Extremities exam: Present: edema (1+edema at ankles. ) - Neurological Exam Neurological exam: Present: alert, oriented X3 - Skin Skin exam: Present: warm, dry Results - Labs CBC & BMP: 08/05/16 05:30 08/05/16 05:30 Lab Results: I have reviewed the past 24 hour labs Quality Measures - VTE Contraindication to Pharmacological VTE Prophylaxis: Thrombocytopenia
[2016-08-05] MEDS: DIGOXIN 0.5 MG/2 ML AMP IV SCH (13:31)
--- NOTE | 2016-08-05 18:07 | Nephrology Progress Note ---
Nephrology - PN: Subj Interval history: He denies shortness of breath or chest pain. No nausea or abdominal pain. Exam (PN)-Nephrology - Vital Signs Vital signs: Period Temp Pulse Resp BP Sys/Hester Pulse Ox Last 24 Hr 96.7 F-98.2 F 68-84 16-20 106-129/60-79 94-99 Exam: Gen.: Alert and oriented x3. ENT: Pupils equal round reactive to light. EOMs intact. Mucous membranes moist. Neck: Supple. No JVD or bruit. Cardiovascular: Regular rate and rhythm. No murmur rub or gallop Lungs: Dullness and basis Abdomen: Soft. Nontender. Positive bowel sounds. No organomegaly Extremities: 2+ edema - Lab 08/05/16 05:30 08/05/16 05:30 Most recent lab results Calcium 6.5 MG/DL (8.5-10.1) L 08/05/16 05:30 Magnesium 2.7 MG/DL (1.8-2.4) H 08/04/16 04:56 Assessment and Plan (1) Metabolic acidosis Status: Acute Assessment and plan: 85-year-old man admitted with: * Toxoplasmosis chorioretinitis. Followed by ophthalmology * Febrile illness. Currently on doxycycline. Followed by ID * Metabolic acidosis. Lactic acid remains mildly elevated. Osmolar gap is normal at 6. Urine anion gap normal at -7. No evidence of toxic ingestion causing acidosis. No RTA. * Hypoalbuminemia. This accounts for his pleural effusions and lower extremity edema. Urine protein to creatinine ratio 0.9. He is not nephrotic. * ? Liver dysfunction. Elevated PTT, elevated lactic acid, low albumin, and elevated LFTs. GI will be consulted * Urinary hesitancy and nocturia. Renal ultrasound to rule out obstruction * A. fib with RVR. Now in NSR after treatment * Thrombocytopenia Current Visit: Yes (2) Pleural effusion Status: Acute Current Visit: Yes (3) Atrial fibrillation with rapid ventricular response Status: Acute Current Visit: Yes (4) Thrombocytopenia Status: Acute Current Visit: Yes (5) Toxoplasma chorioretinitis, left Status: Acute Current Visit: Yes (6) Strep pharyngitis Status: Resolved Current Visit: Yes
[2016-08-05] MEDS: FAMOTIDINE 20 MG TABLET PO SCH (21:07)
[2016-08-06] MEDS: ALBUTEROL/IPRATROPIUM 3 ML NEB RESP TX SCH ×4 (00:07→19:56)
[2016-08-06 04:45] LABS: Basophils % 0.2 % (0.0-0.8); Hematocrit 31.2 VOL% (42.0-52.0); Hemoglobin 10.8 GM/DL (14.0-18.0); Immature Granulocytes % 4.5 %; Immature Granulocytes Absolute 0.22 #; Lymphocytes # 1.2 10*3/uL (1.4-4.0); Lymphocytes % 23.8 % (21.2-54.2); Mean Corpuscular HGB Conc 34.6 GM/DL (32-36); Mean Corpuscular Hemoglobin 31 PG (27-34); Mean Corpuscular Volume 90.4 FL (87-102); Mean Platelet Volume 11.4 FL (9.6-12.0); Monocytes # 0.3 10*3/uL (0.11-0.8); Neutrophils # 3.2 10*3/uL (1.4-7.4); Neutrophils % 65.5 % (38.7-73.9); Platelet Count 55 T/CUMM (130-400); Red Blood Count 3.45 MC/CUMM (3.8-5.5); Red Cell Distribution Width 14.5 % (9.3-17.3); White Blood Count 4.9 T/CUMM (4-12)
[2016-08-06 05:14] LABS: Calcium 7.2 MG/DL (8.5-10.1); Osmolality,Calculated 297.4 MOS/KG (273-304); Potassium 3.9 MMOL/L (3.5-5.1)
[2016-08-06 05:33] LABS: Band Neutrophils 1 % (0-10); Lymphocytes 25 % (20-55); Platelet Estimate Decreased; Segmented Neutrophils 67 % (50-85); Total Cells Counted 100
[2016-08-06 05:34] LABS: Hypochromasia Slight
--- NOTE | 2016-08-06 09:09 | Gastrointestinal Consult Note ---
Assessment and Plan (1) Elevated liver enzymes Status: Acute Assessment and plan: 08/06-Mildly elevated LFTS with marginal increase in AST/ALT since admission with no significant heavy ETOH use in past, hx of cholecystectomy with normal cholangiogram. No abd pain, negative hepatitis panel. Abd US pending at present time. Plan and addendum to follow by DR Moya Current Visit: Yes History of Present Illness Chief complaint: Elevated liver enzymes History of present illness: Mr. Tirado is a 85 year old male who presented to the hospital on 07/29 with complaints of not feeling well. 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 3 days prior to admission patient developed diarrhea and began running a fever. He states he also had increasing weakness and fatigue. He was seen at an outside facility and at that time was found to have thrombocytopenia and was sent to the emergency room for further evaluation. On admission patient was found to be septic and have pneumonia as well as strep throat. Hematology was consulted to manage his thrombocytopenia and his Bactrim was held at that time. He was also transfused 1 unit of platelets. He was consulted with by Dr. Hyman. On admission patient's liver enzymes were noted to only have a mildly elevated AST at 69. Since admission patient's elevated enzymes were noted to increase on 08/04 with an AST of 134 and an ALT of 88 with unremarkable bilirubin and alkaline phosphatase. His LDH was also elevated on admission however trending down at this time now at 555. AST today noted to be 94, and ALT at 80. His platelet count is improving now at 55. He denies any history of elevated liver enzymes in the past. States he was prescribed cholesterol medicine in the past however he never got it filled or took it. He denies a significant history of alcohol use however states he does have one small glass of bourbon every day and has done this for several years. He has had his gallbladder removed by Dr. De Los Santos in the past with a history of gallstones And normal intraoperative cholangiogram at that time. He is afebrile and has been for 3 days. Home Medications Medication Instructions Recorded Confirmed Type Hyoscyamine Sulfate [Oscimin] 1 tablet SL DIRECTED 07/29/16 07/29/16 History Sildenafil Citrate [Viagra] 1 tablet PO DIRECTED 07/29/16 07/29/16 History Tamsulosin HCl [Tamsulosin HCl] 1 capsule PO DAILY 07/29/16 07/29/16 History Allergies Allergy/AdvReac Type Severity Reaction Status Date / Time No Known Allergies Allergy Verified 03/17/16 06:27 Medical,Surgical,& Family Hx - Medical History Cardio: No history of: Cardiac Dysrhythmia, CAD, ND Neurology: History of: Vertigo (past history) No history of: Seizures HEENT: History of: 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, glasses) Endocrine: History of: Dyslipidemia (pt states he is not taking medication) Respiratory: History of: Bronchitis (chronic), Obstructive Sleep Apnea (cpap) Gastrointestinal: History of: GERD Musculoskeletal: History of: Musculoskeletal Problems (degenerative arthritis) Other: History of: Cancer (skin cancer face) No history of: Anesthesia Reactions - Surgical History HEENT Surgeries: Surgical HX of: Eye Surgery (COS) Abdominal Surgeries: Surgical HX of: Cholecystectomy (05/02/15), Colonoscopy, EGD Orthopedic Surgeries: Surgical HX of;: Orthopedic Surgery (carpal tunnel bilateral), Total Hip Replacement (right 2007) - Family History Family History: Reports;: Family Heart Disease (father) - Social History Smoking Status: Never smoker Frequency of Alcohol Use: None Type of Drug Use: None 12 point system: reviewed and no additional remarkable complaints except as stated - Constitutional Constitutional: Present: as per HPI - EENT Eyes: Present: as per HPI Ears: Present: as per HPI Nose, mouth and throat: Present: as per HPI - Cardiovascular Cardiovascular: Present: as per HPI - Respiratory Respiratory: Present: as per HPI - Gastrointestinal Gastrointestinal: Present: as per HPI - Genitourinary Genitourinary: Present: as per HPI - Musculoskeletal Musculoskeletal: Present: as per HPI - Neurological Neurological: Present: as per HPI - Psychiatric Psychiatric: Present: as per HPI - Endocrine Endocrine: Present: as per HPI - Hematologic/Lymphatic Hematologic/Lymphatic: Present: as per HPI Exam - Constitutional Vitals: Period Temp Pulse Resp BP Sys/Hester Pulse Ox Last 24 Hr 97.0 F-97.9 F 70-85 16-20 112-138/63-85 96-99 General appearance: normal weight, no acute distress - Head Head exam: Present: normal inspection, normocephalic - Eye Eye exam: Present: other (lids and conjunctiva unremarkable). Absent: scleral icterus - ENT ENT exam: Present: normal exam, normal oropharynx - Neck Neck exam: Present: normal inspection - Respiratory Respiratory exam: Present: clear to auscultation bilaterally. Absent: rales, rhonchi, wheezes - Cardiovascular Cardiovascular exam: Present: regular rate and rhythm. Absent: diastolic murmur , JVD, systolic murmur - GI/Abdominal GI/Abdominal exam: Present: normal bowel sounds, soft. Absent: ascites, distended, mass, organomegaly, tenderness - Extremities Exam Extremities exam: Present: normal inspection, full ROM - Back Exam Back exam: Present: normal inspection - Neurological Exam Neurological exam: Present: alert, oriented X3 - Psychiatric Psychiatric exam: Present: normal affect, normal mood - Skin Skin exam: Present: normal color, warm, dry Results - Labs CBC & BMP: 08/06/16 03:58 08/06/16 03:58 Lab Results: I have reviewed the past 24 hour labs Quality Measures - VTE Contraindication to Pharmacological VTE Prophylaxis: Thrombocytopenia
--- NOTE | 2016-08-06 09:16 | Ultrasound Report ---
Abdominal ultrasound Indication: Abdominal Pain Findings: The liver is normal in size and echogenicity. The gallbladder has been removed. The common bile duct measures 2.7 mm. The visualized portion of the pancreas appear within normal limits The kidneys normal in size and echogenicity without hydronephrosis or other abnormality. The right renal length is 11.1 cm. Left renal length is 11.8 cm. Spleen, aorta and IVC appear within normal limits. No free fluid or free air seen. Impression: No evidence of abnormality demonstrated. Ultrasound images stored and captured. PROCEDURE INTERPRETED AT [facility] DEPARTMENT OF RADIOLOGY Final Report Signed by: Dr. Miko Stephen
--- NOTE | 2016-08-06 09:49 | Infectious Disease Progress ---
Assessment and Plan (1) Candidiasis of mouth Status: Acute Assessment and plan: resolved Current Visit: Yes (2) Fever Status: Deleted Assessment and plan: Possibly due to tickborne illness versus nonspecific viral illness, and associated with thrombocytopenia and neutropenia and mild transaminitis. The thrombocytopenia continues to improve. No recurrence of fever for 4 days. Continue with empiric doxycycline and we can switch it to oral today. We can complete a total of 10 days of doxycycline. If he gets discharged over the weekend then he should get an appointment to see me in 1 week to follow-up on the results of the serologies. Discussed with Dr. Leonard Current Visit: Yes (3) Hypotension Status: Acute Assessment and plan: Probably related to sepsis, resolved. Current Visit: Yes (4) Sepsis Status: Acute Assessment and plan: No obvious source yet, on empiric therapy for rickettsial illness versus ehrlichiosis. Continue with empiric doxycycline. Current Visit: Yes (5) Strep pharyngitis Status: Resolved Assessment and plan: Treated on admission. Droplet precautions no longer indicated. Current Visit: Yes (6) Thrombocytopenia Status: Acute Current Visit: Yes (7) Toxoplasma chorioretinitis, left Status: Acute Assessment and plan: Inactive per ophthalmology; treatment not currently indicated. Current Visit: Yes Infectious Disease - PN: Subj Interval history: Patient continues to feel better every day, remains afebrile, appetite improving but is not eating that much because he does not like the food. No nausea vomiting no diarrhea. No abdominal pain. No breathing difficulties. Unchanged leg edema. Infectious Disease Exam (PN) - Constitutional Vitals: Temp Pulse Resp BP Pulse Ox 97.0 F L 85 18 138/66 98 08/06/16 08:00 08/06/16 08:00 08/06/16 08:00 08/06/16 08:00 08/06/16 08:00 General appearance: normal weight, no acute distress Exam: General appearance: Alert and comfortable, conversant - Eye Eye exam: Present: EOMI. no icterus Pupils: Present: VERNA - ENT ENT exam: No oropharyngeal exudates - Respiratory Respiratory exam: Breath sounds clear today - Cardiovascular Cardiovascular exam: regular rate and rhythm, no murmurs - GI/Abdominal GI/Abdominal exam: normal bowel sounds, soft, non-tender, no organomegaly or mass - Extremities Exam Extremities exam: Unchanged bilateral leg edema - Skin Skin exam: no rash Results - Labs CBC & BMP: 08/06/16 03:58 08/06/16 03:58 Lab Results: I have reviewed the past 24 hour labs (Serologies still pending) Quality Measures - VTE Contraindication to Pharmacological VTE Prophylaxis: Thrombocytopenia
[2016-08-06] MEDS: FLUCONAZOLE 100 MG TABLET PO SCH (09:52)
[2016-08-06] MEDS: PANTOPRAZOLE 40 MG TABLET PO SCH (09:52)
[2016-08-06] MEDS: TAMSULOSIN 0.4 MG CAPSULE PO SCH (09:52)
[2016-08-06] MEDS: ASCORBIC ACID 500 MG TABLET PO SCH ×2 (09:52→20:50)
[2016-08-06] MEDS: DILTIAZEM 30 MG TABLET PO SCH ×3 (09:52→20:50)
[2016-08-06] MEDS: CLOTRIMAZOLE 10 MG TROCHE PO SCH ×4 (09:52→20:51)
--- NOTE | 2016-08-06 11:43 | Oncology Progress Note ---
Oncology Subjective PN Interval history: Mr. Tirado has had an abdominal ultrasound that is normal. He had an elevated cadmium level. The textbooks suggest that the 24 hour urine cadmium is appropriate under these circumstances so I have ordered one. Blood work today includes white cell count of 4900 with a hemoglobin of 10.8 and the patient's platelet count is up to 55,000. It would be okay to begin tapering steroids if his platelet count will rise above about 70,000. I think I would still leave him on the Solu-Medrol at a lower dose, probably about half of what he is receiving presently. Dr. Miller is manager of selection and assessment this weekend. Please feel free to contact him if needed. Otherwise I will be checking back on Tuesday. Exam - Constitutional Vitals: Period Temp Pulse Resp BP Sys/Hester Pulse Ox Last 24 Hr 97.0 F-97.9 F 70-85 16-20 112-138/63-85 96-99 Results - Labs CBC & BMP: 08/06/16 03:58 08/06/16 03:58 Quality Measures - VTE Contraindication to Pharmacological VTE Prophylaxis: Thrombocytopenia
[2016-08-06] MEDS: DIGOXIN 0.5 MG/2 ML AMP IV SCH (13:03)
[2016-08-06] MEDS: DOXYCYCLINE HYCLATE INJ 100 MG in SODIUM CHLORIDE 0.9% 100 ML IV SCH (13:08)
[2016-08-06] MEDS: methylPREDNISolone SOD SUC 125 MG/2 ML VIAL IV SCH (13:08)
--- NOTE | 2016-08-06 14:10 | Cardiology Progress Note ---
I, Pura Cameron RN, am scribing for, and in the presence of, Nabeel Kay MD 14:10. Assessment and Plan - Time spent with patient Time spent with patient: Greater than 30 minutes (1) Atrial fibrillation with rapid ventricular response Status: Acute Assessment and plan: New onset of atrial fibrillation this admission. He has since converted to sinus rhythm. Continue PO Cardizem and Vitamin C. Due to thrombocytopenia, he is not a candidate for anticoagulation. I do not see any reason to make any further changes at this time. His cardiac status is stable. I am going to drop off of his case. If I could be in any assistance in the future please give me a call. I told Mr. Tirado he can follow-up with me on an as-needed basis in the future if he has any sort of cardiac symptoms. Current Visit: Yes (2) Acute idiopathic thrombocytopenic purpura Status: Acute Assessment and plan: Patient has been evaluated by hematology, and Dr. Pastor is following. Current Visit: Yes (3) Elevated liver enzymes Status: Acute Assessment and plan: They are trending downward. Gastroenterology has been consulted. Abdominal US without acute finding. Current Visit: Yes (4) Pneumonia Status: Acute Assessment and plan: Continue current plan of care. Current Visit: Yes (5) Toxoplasma chorioretinitis, left Status: Acute Assessment and plan: Continue current plan of care. Current Visit: Yes (6) Strep pharyngitis Status: Resolved Current Visit: Yes (7) Sleep apnea in adult Status: Chronic Assessment and plan: Continue CPAP use. Current Visit: No Cardiology - PN: Subj Interval history: PLANT SUPERVISOR: DR. KAY (NEW) Mr. Tirado, 85WM, presented to the emergency department at [facility] July 29, 2016 with complaints of flulike symptoms, weakness and body aches. No prior cardiac history is noted. Patient was referred to the ER after being evaluated in outlying clinic with the same complaints. He was found to be thrombocytopenic and he was admitted for further workup to include possible sepsis. He was found to be positive for strep. Chest x-ray revealed possible pneumonia and he is being treated for this. 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 He was previously treated with Bactrim outpatient which may have contributed to or caused his thrombocytopenia. Dr. Morales has evaluated patient and is concerned he may have a tickborne illness. He is currently being worked up for this as well. Cardiology was consulted for new onset of atrial fibrillation. Initially, IV diltiazem was initiated and his heart rate came under better control. Unfortunately, increasing dose of Diltiazem has been difficult due to hypotension. Digoxin was initiated. Patient did have conversion from atrial fibrillation to sinus rhythm on 08/04 without recurrence of AF or other dysrhythmia since that time. Echo reveals EF 60%, RA enlargement noted. CT Chest negative for PE. Patient seen and examined. He is without complaint today and is sitting up in bedside chair eating lunch. No chest pain, dyspnea. No recurrence of atrial fibrillation or other sustained arrhythmia overnight. Remains in a sinus rhythm with pulse rate 70s-80s. Patient has been accepted to [facility] facility , and he will be discharged there in the next day or so. Blood pressure averagin 135/70. Platelets continue to trend upward. LFTs noted to be elevated, now trending downward, and he has now been seen and evaluated by gastroenterology. He has had no abdominal complaints. Abdominal US was without acute finding. Labs reviewed. PLTs 55,000. Potassium 3.9. Glucose greater than 300 today. AST 94. ALT 80. Current Medications Acetaminophen (Tylenol Tab) 650 mg PO Q4H PRN PRN Reason: Fever, Headache, Mild Pain Last Admin: 08/02/16 02:30 Dose: 650 mg Albuterol Sulfate (Proventil Neb) 2.5 mg RESP TX RT Q1H PRN PRN Reason: Shortness of Breath/Wheezing Albuterol Sulfate (Proventil Neb) 2.5 mg RESP TX RT Q6H PRN PRN Reason: Shortness of Breath/Wheezing Albuterol/Ipratropium (Duoneb) 3 ml RESP TX RT Q6H [facility] Last Admin: 08/06/16 07:15 Dose: 3 ml Ascorbic Acid (Vitamin C Tab) 1,000 mg PO BID [facility] Last Admin: 08/06/16 09:52 Dose: 1,000 mg Clotrimazole (Mycelex Abdoulaye) 10 mg PO QID [facility] Last Admin: 08/06/16 09:52 Dose: 10 mg Digoxin (Lanoxin Inj) 0.125 mg IV DAILY@1300 [facility] Last Admin: 08/05/16 13:31 Dose: 0.125 mg Diltiazem HCl (Cardizem Tab) 30 mg PO TID [facility] Last Admin: 08/06/16 09:52 Dose: 30 mg Famotidine (Pepcid Tab) 20 mg PO BEDTIME [facility] Last Admin: 08/05/16 21:07 Dose: 20 mg Fluconazole (Diflucan Tab) 100 mg PO DAILY [facility] Stop: 08/07/16 23:59 Last Admin: 08/06/16 09:52 Dose: 100 mg Magnesium Sulfate 2 gm/ Premix 50 mls @ 25 mls/hr IV .PER PROTOCOL PRN; Protocol PRN Reason: Per Protocol Magnesium Sulfate 4 gm/ Premix 100 mls @ 25 mls/hr IV .PER PROTOCOL PRN; Protocol PRN Reason: Per Protocol Potassium Chloride 10 meq/ (Premix) 100 mls @ 100 mls/hr IV .PER PROTOCOL PRN; Protocol PRN Reason: Per Protocol Last Infusion: 08/02/16 12:40 Dose: Infused Doxycycline Hyclate 100 mg/ (Sodium Chloride) 100 mls @ 100 mls/hr IV Q12H [facility] Last Infusion: 08/06/16 00:42 Dose: Infused Methylprednisolone Sodium Succinate (Solumedrol) 125 mg IV Q12H [facility] Last Admin: 08/05/16 23:44 Dose: 125 mg Ondansetron HCl (Zofran Inj) 4 mg IV Q4H PRN PRN Reason: Nausea Pantoprazole Sodium (Protonix Tab) 40 mg PO DAILY [facility] Last Admin: 08/06/16 09:52 Dose: 40 mg Phenol (Chloraseptic Elkin) 5 spray PO Q2H PRN PRN Reason: Sore Throat Potassium Chloride (K Dur) 20 meq PO .PER PROTOCOL PRN; Protocol PRN Reason: Per Protocol Last Admin: 08/03/16 09:04 Dose: 20 meq Tamsulosin HCl (Flomax) 0.4 mg PO DAILY [facility] Last Admin: 08/06/16 09:52 Dose: 0.4 mg Zaleplon (Sonata) 5 mg PO BEDTIME PRN PRN Reason: Sleep Exam (Progress Note) - Constitutional Vitals: Period Temp Pulse Resp BP Sys/Hester Pulse Ox Last 24 Hr 97.0 F-97.9 F 70-85 16-18 112-138/63-85 96-99 Exam: General: [Appears well with no apparent distress.] HEENT: [PERRL, normocephalic, atraumatic. Mucous membranes moist. No jaundice noted. Conjunctiva moist and clear, sclerae anicteric] Neck: No obvious JVD/HJR, no thyromegaly or lymphadenopathy noted. No carotid bruit appreciated Cardiac: [Regular rate and rhythm, S1 and S2] [No obvious murmur rub or gallop. No arrhythmia] Lungs: Minimal wheezing noted throughout but minimal. Not requiring supplemental oxygen today. Abdomen: Soft, bowel sounds normoactive. Nontender and nondistended. No abdominal bruit or thrill noted. No masses noted. Musculoskeletal: No fluid collection. Decreased range of motion is noted. Extremities: No clubbing, cyanosis noted. No peripheral edema. Upper extremity pulses and Lower extremity pulses 2+ bilaterally. Capillary refill less than 3 seconds. Skin: Warm, dry, intact. No unusual lesions or rashes. No skin breakdown appreciated. Neuro: Awake, alert and oriented 3. Moves all extremities well without hemiparesis or paralysis. No essential tremor is appreciated. Patient does not appear to be anxious or depressed. Result/EKG - Labs CBC & BMP: 08/06/16 03:58 08/06/16 03:58 Lab Results: I have reviewed the past 24 hour labs Labs: Laboratory Results - last 24 hr 08/06/16 08/06/16 03:58 03:58 WBC 4.9 RBC 3.45 L Hgb 10.8 L Hct 31.2 L MCV 90.4 MCH 31 MCHC 34.6 RDW 14.5 Plt Count 55 L D MPV 11.4 Neut % (Auto) 65.5 Lymph % (Auto) 23.8 [place] % (Auto) 6.0 Eos % (Auto) 0.0 Baso % (Auto) 0.2 Neut # (Auto) 3.2 Lymph # (Auto) 1.2 L [place] # (Auto) 0.3 Eos # (Auto) 0.0 Baso # (Auto) 0.0 Total Counted 100 Immature Gran % 4.5 Nucleated RBC % 0.0 Immature Gran # 0.22 Segmented Neutrophils 67 Band Neutrophils 1 Lymphocytes 25 Monocytes 7 Nucleated RBCs # 0.00 Platelet Estimate Decreased Hypochromasia Slight Sodium 140 Potassium 3.9 Chloride 110 H Carbon Dioxide 19 L Anion Gap 14.9 BUN 31 H Creatinine 1.10 GFR Calculation 68 BUN/Creatinine Ratio 28.00 H Glucose 318 H Calculated Osmolality 297.4 Calcium 7.2 L - Diagnostic Findings Procedure: Ultrasound: image reviewed by me, report reviewed by me - EKG EKG results: interpreted by me, no acute changes EKG shows: sinus rhythm Quality Measures - VTE Contraindication to Pharmacological VTE Prophylaxis: Thrombocytopenia Jed, Nabeel Kay MD, personally performed the services described in this documentation, ascribed by Pura Cameron RN in my presence, and it is both accurate and complete [id number] .
--- NOTE | 2016-08-06 15:25 | Hospitalist Progress Note ---
Assessment and Plan (1) Sepsis Status: Acute Assessment and plan: 1)ID- sepsis was most likely fom tick borne illness. His fever went away and hypotension resolved within 24 hours of initiating doxy and IV steroids for secondary adrenal insufficiency. can take oral doxy as outlined by Dr Rolanda Middleton at discharge. She will see him in clinic also. 2)thrombocytopenia- steroids addressing this as well, now that they are 55,000 we can begin to taper. 3)adrenal insufficiency, secondary- he frequently takes oral steroids for his eyes. 4)oral thrush- resolved soon- stop diflucan tomorrow probably 5)encephalopathy- resolved 6)rapid afib- converted to NSR now. 7)nutrition- appetite a bit better each day 8)toxoplasma chorioretinitis- chronic, not active. follow up in [facility] per his daughter. also sees Dr Luna. 9)heavy metal testing- 24hour urine underway. Current Visit: Yes (2) Secondary adrenal insufficiency Status: Acute Current Visit: Yes (3) Toxoplasma chorioretinitis, left Status: Acute Current Visit: Yes (4) Acid reflux Status: Chronic Current Visit: Yes (5) Sleep apnea in adult Status: Chronic Current Visit: No (6) Candidiasis of mouth Status: Acute Current Visit: Yes (7) Fatigue Status: Acute Current Visit: Yes (8) Hypotension Status: Acute Current Visit: Yes (9) Acute idiopathic thrombocytopenic purpura Status: Acute Current Visit: Yes (10) Strep pharyngitis Status: Resolved Current Visit: Yes (11) Encephalopathy Status: Resolved Current Visit: Yes Hospitalist: Subjective Interval history: Mr Tirado is feeing good and fairly anxious to go home. He is up independently in the room and was working with PT when I arrived. I explained that we have to get him to the point of being on oral steroids before he can go home. Exam - Constitutional Vitals: Period Temp Pulse Resp BP Sys/Hester Pulse Ox Last 24 Hr 96.0 F-97.9 F 65-98 16-18 112-138/63-85 96-99 General appearance: normal weight, no acute distress - Head Head exam: Present: normocephalic, atraumatic - Eye Eye exam: Present: EOMI. Absent: scleral icterus - Respiratory Respiratory exam: Present: clear to auscultation bilaterally - Cardiovascular Cardiovascular exam: Present: regular rate and rhythm - GI/Abdominal GI/Abdominal exam: Present: normal bowel sounds, soft. Absent: tenderness - Extremities Exam Extremities exam: Present: edema (2+ dependent edema lower extremities) - Neurological Exam Neurological exam: Present: alert, oriented X3 - Skin Skin exam: Present: warm, dry Results - Labs CBC & BMP: 08/06/16 03:58 08/06/16 03:58 Lab Results: I have reviewed the past 24 hour labs Quality Measures - VTE Contraindication to Pharmacological VTE Prophylaxis: Thrombocytopenia
[2016-08-06] MEDS ORDERED: FUROSEMIDE 40 MG/4 ML VIAL IV ONE (15:26)
[2016-08-06] MEDS: FAMOTIDINE 20 MG TABLET PO SCH (20:50)
--- NOTE | 2016-08-06 23:32 | Nephrology Progress Note ---
Nephrology - PN: Subj Interval history: No shortness of breath or pain. No GI symptoms. Exam (PN)-Nephrology - Vital Signs Vital signs: Period Temp Pulse Resp BP Sys/Hester Pulse Ox Last 24 Hr 96.0 F-98.0 F 65-98 16-18 129-138/63-82 93-99 Exam: ENT: Normal Cardiovascular: Regular rate and rhythm. No murmur rub or gallop Lungs: Clear Extremities: 1-2+ edema - Lab 08/06/16 03:58 08/06/16 03:58 Most recent lab results Calcium 7.2 MG/DL (8.5-10.1) L 08/06/16 03:58 Magnesium 2.7 MG/DL (1.8-2.4) H 08/04/16 04:56 Assessment and Plan (1) Metabolic acidosis Status: Acute Assessment and plan: 85-year-old man admitted with: * Toxoplasmosis chorioretinitis. Followed by ophthalmology * Febrile illness. Currently on doxycycline. Followed by ID * Metabolic acidosis. Lactic acid remains mildly elevated. Osmolar gap is normal at 6. Urine anion gap normal at -7. No evidence of toxic ingestion causing acidosis. No RTA. This is improving * Hypoalbuminemia. This accounts for his pleural effusions and lower extremity edema. Urine protein to creatinine ratio 0.9. He is not nephrotic. * ? Liver dysfunction. Elevated PTT, elevated lactic acid, low albumin, and elevated LFTs. GI following * Urinary hesitancy and nocturia. Renal ultrasound normal * A. fib with RVR. Now in NSR after treatment * Thrombocytopenia Current Visit: Yes (2) Pleural effusion Status: Acute Current Visit: Yes (3) Atrial fibrillation with rapid ventricular response Status: Acute Current Visit: Yes (4) Thrombocytopenia Status: Acute Current Visit: Yes (5) Toxoplasma chorioretinitis, left Status: Acute Current Visit: Yes (6) Strep pharyngitis Status: Resolved Current Visit: Yes
[2016-08-07] MEDS: ALBUTEROL/IPRATROPIUM 3 ML NEB RESP TX SCH ×4 (01:18→21:27)
[2016-08-07] MEDS: DOXYCYCLINE HYCLATE INJ 100 MG in SODIUM CHLORIDE 0.9% 100 ML IV SCH ×2 (01:19→11:27)
[2016-08-07] MEDS: methylPREDNISolone SOD SUC 125 MG/2 ML VIAL IV SCH ×2 (01:19→11:27)
[2016-08-07 04:24] LABS: Hematocrit 29.9 VOL% (42.0-52.0); Hemoglobin 10.2 GM/DL (14.0-18.0); Immature Granulocytes % 7.3 %; Immature Granulocytes Absolute 0.35 #; Lymphocytes # 1.3 10*3/uL (1.4-4.0); Lymphocytes % 26.6 % (21.2-54.2); Mean Corpuscular HGB Conc 34.1 GM/DL (32-36); Mean Corpuscular Hemoglobin 31 PG (27-34); Mean Corpuscular Volume 91.4 FL (87-102); Mean Platelet Volume 10.3 FL (9.6-12.0); Monocytes # 0.3 10*3/uL (0.11-0.8); Monocytes % 6.2 % (1.7-12.7); NRBC # 0.02 10*3/uL; Neutrophils # 2.9 10*3/uL (1.4-7.4); Neutrophils % 59.9 % (38.7-73.9); Red Blood Count 3.27 MC/CUMM (3.8-5.5); Red Cell Distribution Width 13.9 % (9.3-17.3); White Blood Count 4.8 T/CUMM (4-12)
[2016-08-07 04:28] LABS: Platelet Count 59 T/CUMM (130-400)
[2016-08-07 04:55] LABS: Calcium 7.5 MG/DL (8.5-10.1); Osmolality,Calculated 290.5 MOS/KG (273-304); Potassium 3.6 MMOL/L (3.5-5.1)
[2016-08-07 05:24] LABS: Band Neutrophils 2 % (0-10); Hypochromasia 1+; Lymphocytes 11 % (20-55); Microcytosis Slight; Platelet Estimate Decreased; Segmented Neutrophils 82 % (50-85); Total Cells Counted 100
[2016-08-07] MEDS: ASCORBIC ACID 500 MG TABLET PO SCH ×2 (08:27→21:15)
[2016-08-07] MEDS: PANTOPRAZOLE 40 MG TABLET PO SCH (08:28)
[2016-08-07] MEDS: CLOTRIMAZOLE 10 MG TROCHE PO SCH ×4 (08:28→21:15)
[2016-08-07] MEDS: FLUCONAZOLE 100 MG TABLET PO SCH (08:28)
[2016-08-07] MEDS: DILTIAZEM 30 MG TABLET PO SCH ×3 (08:28→21:15)
[2016-08-07] MEDS: TAMSULOSIN 0.4 MG CAPSULE PO SCH (08:28)
--- NOTE | 2016-08-07 11:40 | Hospitalist Progress Note ---
Assessment and Plan - Time spent with patient Time spent with patient: Greater than 30 minutes (37 min total time with greater than 50% of time in discussion with RN and pt regarding findings and tx plan) (1) Sepsis Status: Acute Assessment and plan: Source unknown; treating presumptively for tick borne illness. Clinically improved. ID following. Will de-escalate to po doxycycline today and monitor response. 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 Heme/onc following. Will wean steroids further today to po prednisone at 40 mg BID, a little more than 1mg/kg/24 hrs. Will monitor response. Current Visit: Yes (3) Sleep apnea in adult Status: Chronic Current Visit: No (4) Toxoplasma chorioretinitis, left Status: Acute Current Visit: Yes (5) Candidiasis of mouth Status: Acute Current Visit: Yes (6) Atrial fibrillation with rapid ventricular response Status: Acute Assessment and plan: resolved Current Visit: Yes (7) Metabolic acidosis Status: Acute Assessment and plan: Resolving. Now with normal anion gap and enzymatic bicarb. Current Visit: Yes Hospitalist: Subjective Interval history: pt reports he feels well. Very anxious to dc home as soon as possible. No new complaints. Exam - Constitutional Vitals: Period Temp Pulse Resp BP Sys/Hester Pulse Ox Last 24 Hr 96.0 F-98.0 F 53-98 16-20 134-141/68-82 92-100 General appearance: no acute distress - Head Head exam: Present: normocephalic, atraumatic - Eye Eye exam: Present: EOMI Pupils: Present: VERNA - ENT ENT exam: Present: normal exam - Neck Neck exam: Present: normal inspection. Absent: lymphadenopathy - Respiratory Respiratory exam: Present: clear to auscultation bilaterally. Absent: accessory muscle use - Cardiovascular Cardiovascular exam: Present: regular rate and rhythm. Absent: gallop, rubs - GI/Abdominal GI/Abdominal exam: Present: normal bowel sounds. Absent: distended, guarding, tenderness - Extremities Exam Extremities exam: Present: normal inspection, full ROM - Neurological Exam Neurological exam: Present: alert, oriented X3 - Psychiatric Psychiatric exam: Present: normal affect, normal mood - Skin Skin exam: Present: normal color, warm, dry Results - Labs CBC & BMP: 08/07/16 03:17 08/07/16 03:17 Quality Measures - VTE Contraindication to Pharmacological VTE Prophylaxis: Thrombocytopenia
--- NOTE | 2016-08-07 12:43 | Nephrology Progress Note ---
Nephrology - PN: Subj Interval history: Mr. Tirado is seen in follow-up of his metabolic acidosis. This has improved and his measured bicarb is now 21. He is sitting up in a chair in no distress he does have 2+ pretibial edema his chest is clear. Platelet count is rising. Overall it appears he is slowly improving. Exam (PN)-Nephrology - Vital Signs Vital signs: Period Temp Pulse Resp BP Sys/Hester Pulse Ox Last 24 Hr 97.1 F-98.1 F 53-98 16-20 133-141/70-82 92-100 - Lab 08/07/16 03:17 08/07/16 03:17 Most recent lab results Calcium 7.5 MG/DL (8.5-10.1) L 08/07/16 03:17 Magnesium 2.7 MG/DL (1.8-2.4) H 08/04/16 04:56
[2016-08-07] MEDS: predniSONE 20 MG TABLET PO SCH (21:14)
[2016-08-07] MEDS: FAMOTIDINE 20 MG TABLET PO SCH (21:15)
[2016-08-07] MEDS: DOXYCYCLINE HYCLATE 100 MG CAPSULE PO SCH (21:15)
[2016-08-07 21:35] LABS: Q Fever IgM Phase I Screen NEGATIVE (NEGATIVE); Q Fever IgM Phase II Screen NEGATIVE (NEGATIVE)
[2016-08-08 00:25] LABS: E.chaffeensis Ab IgM <1:20 (<1:20)
[2016-08-08] MEDS: ALBUTEROL/IPRATROPIUM 3 ML NEB RESP TX SCH ×4 (02:34→19:32)
[2016-08-08 04:19] LABS: Basophils % 0.2 % (0.0-0.8); Hematocrit 29.4 VOL% (42.0-52.0); Hemoglobin 10.3 GM/DL (14.0-18.0); Immature Granulocytes % 9.9 %; Immature Granulocytes Absolute 0.54 #; Lymphocytes # 1.4 10*3/uL (1.4-4.0); Lymphocytes % 26.3 % (21.2-54.2); Mean Corpuscular Hemoglobin 32 PG (27-34); Mean Corpuscular Volume 89.9 FL (87-102); Mean Platelet Volume 10.8 FL (9.6-12.0); Monocytes # 0.4 10*3/uL (0.11-0.8); Monocytes % 6.6 % (1.7-12.7); NRBC # 0.03 10*3/uL; Neutrophils # 3.1 10*3/uL (1.4-7.4); Platelet Count 71 T/CUMM (130-400); Red Blood Count 3.27 MC/CUMM (3.8-5.5); Red Cell Distribution Width 14.2 % (9.3-17.3); White Blood Count 5.5 T/CUMM (4-12)
[2016-08-08 04:41] LABS: Calcium 7.1 MG/DL (8.5-10.1); Osmolality,Calculated 291.4 MOS/KG (273-304); Potassium 3.7 MMOL/L (3.5-5.1)
[2016-08-08 05:43] LABS: Band Neutrophils 1 % (0-10); Metamyelocytes 1 %
[2016-08-08 05:44] LABS: Eosinophils 2 % (0-10); Hypochromasia 2+; Lymphocytes 31 % (20-55); Platelet Estimate Decreased; Segmented Neutrophils 58 % (50-85); Total Cells Counted 99
[2016-08-08] MEDS: ASCORBIC ACID 500 MG TABLET PO SCH ×2 (08:31→20:42)
[2016-08-08] MEDS: PANTOPRAZOLE 40 MG TABLET PO SCH (08:31)
[2016-08-08] MEDS: DILTIAZEM 30 MG TABLET PO SCH ×3 (08:31→20:43)
[2016-08-08] MEDS: DOXYCYCLINE HYCLATE 100 MG CAPSULE PO SCH ×2 (08:31→20:42)
[2016-08-08] MEDS: predniSONE 20 MG TABLET PO SCH ×2 (08:31→20:43)
[2016-08-08] MEDS: CLOTRIMAZOLE 10 MG TROCHE PO SCH ×4 (08:31→20:43)
[2016-08-08] MEDS: TAMSULOSIN 0.4 MG CAPSULE PO SCH (08:31)
--- NOTE | 2016-08-08 10:11 | Nephrology Progress Note ---
Nephrology - PN: Subj Interval history: Mr. Tirado is seen in follow-up of his metabolic acidosis which has now resolved. His measured bicarbonate is 26. He is breathing comfortably and is in no distress and generally feels a bit better. We will make no changes in his current therapy. Exam (PN)-Nephrology - Vital Signs Vital signs: Period Temp Pulse Resp BP Sys/Hester Pulse Ox Last 24 Hr 97.2 F-98.2 F 60-74 18-20 128-165/68-80 93-100 - Lab 08/08/16 02:51 08/08/16 02:51 Most recent lab results Calcium 7.1 MG/DL (8.5-10.1) L 08/08/16 02:51 Magnesium 2.7 MG/DL (1.8-2.4) H 08/04/16 04:56
--- NOTE | 2016-08-08 10:30 | Hospitalist Progress Note ---
Assessment and Plan (1) Sepsis Status: Acute Assessment and plan: Source unknown; treating presumptively for tick borne illness. Sepsis resolved clinically. De-escalated to po doxycycline on 08/07/16 and pt continues to improve. Suspect he is approaching [facility]. 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 Heme/onc following. Improving. weaned to po prednisone on 08/07/16. Current Visit: Yes (3) Sleep apnea in adult Status: Chronic Current Visit: Yes (4) Toxoplasma chorioretinitis, left Status: Acute Current Visit: Yes (5) Candidiasis of mouth Status: Acute Current Visit: Yes (6) Atrial fibrillation with rapid ventricular response Status: Acute Assessment and plan: resolved Current Visit: Yes (7) Metabolic acidosis Status: Acute Assessment and plan: Resolving. Now with normal anion gap and enzymatic bicarb. Current Visit: Yes Hospitalist: Subjective Interval history: Continues to improve. Inquiring about DC home Exam - Constitutional Vitals: Period Temp Pulse Resp BP Sys/Hester Pulse Ox Last 24 Hr 97.2 F-98.2 F 60-74 18-20 128-165/68-80 93-100 General appearance: no acute distress - Head Head exam: Present: normocephalic, atraumatic - Eye Eye exam: Present: EOMI. Absent: conjunctival injection, scleral icterus Pupils: Present: VERNA - ENT ENT exam: Present: normal exam - Neck Neck exam: Present: normal inspection. Absent: lymphadenopathy, meningismus, tenderness - Respiratory Respiratory exam: Present: clear to auscultation bilaterally. Absent: rales, rhonchi, wheezes - Cardiovascular Cardiovascular exam: Present: regular rate and rhythm - GI/Abdominal GI/Abdominal exam: Present: normal bowel sounds. Absent: distended, guarding, tenderness - Extremities Exam Extremities exam: Present: normal capillary refill, full ROM - Neurological Exam Neurological exam: Present: alert, oriented X3 - Psychiatric Psychiatric exam: Present: normal affect, normal mood - Skin Skin exam: Present: normal color, warm, dry Results - Labs CBC & BMP: 08/08/16 02:51 08/08/16 02:51 Quality Measures - VTE Contraindication to Pharmacological VTE Prophylaxis: Thrombocytopenia
[2016-08-08] MEDS: FAMOTIDINE 20 MG TABLET PO SCH (20:43)
[2016-08-08] MEDS ORDERED: ZALEPLON 5 MG CAPSULE PO SCH (21:00)
[2016-08-09] MEDS: ALBUTEROL/IPRATROPIUM 3 ML NEB RESP TX SCH ×3 (02:53→13:02)
[2016-08-09 05:20] LABS: Basophils % 0.2 % (0.0-0.8); Hematocrit 29.8 VOL% (42.0-52.0); Hemoglobin 10.4 GM/DL (14.0-18.0); Immature Granulocytes % 10.8 %; Immature Granulocytes Absolute 0.64 #; Lymphocytes # 1.6 10*3/uL (1.4-4.0); Lymphocytes % 27.5 % (21.2-54.2); Mean Corpuscular HGB Conc 34.9 GM/DL (32-36); Mean Corpuscular Hemoglobin 32 PG (27-34); Mean Corpuscular Volume 90.3 FL (87-102); Mean Platelet Volume 10.4 FL (9.6-12.0); Monocytes # 0.4 10*3/uL (0.11-0.8); Monocytes % 7.5 % (1.7-12.7); NRBC # 0.05 10*3/uL; Neutrophils # 3.2 10*3/uL (1.4-7.4); Red Cell Distribution Width 13.7 % (9.3-17.3); White Blood Count 5.9 T/CUMM (4-12)
[2016-08-09 05:23] LABS: Platelet Count 75 T/CUMM (130-400)
[2016-08-09 05:56] LABS: Albumin 2.1 G/DL (3.4-5.0); Calcium 7.6 MG/DL (8.5-10.1); Osmolality,Calculated 288.4 MOS/KG (273-304); Phosphorous 2.9 MG/DL (2.5-4.9); Potassium 3.8 MMOL/L (3.5-5.1)
[2016-08-09 06:16] LABS: Band Neutrophils 2 % (0-10); Hypochromasia 1+; Lymphocytes 25 % (20-55); Nucleated Red Blood Cells 1 (0-5); Segmented Neutrophils 62 % (50-85); Total Cells Counted 100
[2016-08-09 06:17] LABS: Microcytosis Slight; Platelet Estimate Decreased
--- NOTE | 2016-08-09 07:26 | Oncology Progress Note ---
Oncology Subjective PN Interval history: Blood counts are improving. His platelet count is up to 75,000. His white cell count is 5900 and his hemoglobin is 10.4. Interestingly, nucleated red blood cells are noted at 0.8% today. I am going to check a haptoglobin level. I will be interested in Dr. Middleton's comments about the serology. Serologies returned on August 06 including:Tests for Q fever that were negative, spotted fever group IgG detected A, spotted fever group IgM was not detected. Rickettsia IgG titer was positive at 1:64, which is borderline; Rickettsia IgM titer is pending. Rickettsia typhi IgG detected at 1:64, which is borderline. Rickettsia typhi IgM is not detected. Although these were labeled as being reported on August 02, they were not on this electronic medical record until at least August 06. I have ordered a 24-hour urine for cadmium. That order was placed on August 05 but urine collection was not begun until August 06 at the earliest. I am told by the nurses that the 24 hour urine has been collected. There is no documentation in the electronic record that the results are pending, so I have asked him to check on this. Exam - Constitutional Vitals: Period Temp Pulse Resp BP Sys/Hester Pulse Ox Last 24 Hr 97.4 F-98.4 F 62-76 16-20 114-138/55-79 94-99 Results - Labs CBC & BMP: 08/09/16 04:56 08/09/16 04:56 Quality Measures - VTE Contraindication to Pharmacological VTE Prophylaxis: Thrombocytopenia
--- NOTE | 2016-08-09 09:22 | Gastrointestinal Progress Note ---
Assessment and Plan (1) Elevated liver enzymes Status: Acute Assessment and plan: 08/09-LFTs pending for today. No c/o, no changes at present time. Plan and addendum to follow by Dr Moya. 08/06-Mildly elevated LFTS with marginal increase in AST/ALT since admission with no significant heavy ETOH use in past, hx of cholecystectomy with normal cholangiogram. No abd pain, negative hepatitis panel. Abd US pending at present time. Plan and addendum to follow by DR Moya Current Visit: Yes Gastroenterology - PN: Subj Interval history: CC: Elevated LFT Pt is seen awake and alert, states that he is feeling some better at this time. He denies any abdominal pain, nausea or vomiting. Abdomen is soft, nontender. He is tolerating his diet well at this time. He states he is for possible discharge home today. LFTs rechecked today and pending at present time. ROS: Denies SOB or chest pain Exam (Progress Note) - Constitutional Vitals: Period Temp Pulse Resp BP Sys/Hester Pulse Ox Last 24 Hr 97.4 F-98.4 F 62-77 16-20 114-142/55-85 94-99 General appearance: normal weight, no acute distress - Head Head exam: Present: normal inspection, normocephalic - Eye Eye exam: Present: other (lids and conjunctiva unremarkable). Absent: scleral icterus - ENT ENT exam: Present: normal exam, normal oropharynx - Neck Neck exam: Present: normal inspection - Respiratory Respiratory exam: Present: clear to auscultation bilaterally. Absent: rales, rhonchi, wheezes - Cardiovascular Cardiovascular exam: Present: regular rate and rhythm. Absent: diastolic murmur , JVD, systolic murmur - GI/Abdominal GI/Abdominal exam: Present: normal bowel sounds, soft. Absent: ascites, distended, mass, organomegaly, tenderness - Extremities Exam Extremities exam: Present: normal inspection, full ROM - Back Exam Back exam: Present: normal inspection - Neurological Exam Neurological exam: Present: alert, oriented X3 - Psychiatric Psychiatric exam: Present: normal affect, normal mood - Skin Skin exam: Present: normal color, warm, dry Results - Labs CBC & BMP: 08/09/16 04:56 08/09/16 04:56 Lab Results: I have reviewed the past 24 hour labs
[2016-08-09 09:46] LABS: Albumin 2.4 G/DL (3.4-5.0); Bilirubin,Direct 0.3 MG/DL (0.0-0.20); Bilirubin,Indirect 0.4 MG/DL (0.0-1.0); Bilirubin,Total 0.7 MG/DL (0.2-1.0); Total Protein 4.9 G/DL (6.4-8.3)
--- NOTE | 2016-08-09 10:41 | Discharge Summary ---
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 Patient developed diarrhea and was noted to be very thrombocytopenic with a platelet level of 28 on admission. Blood cultures 4 were negative no growth, stool for C. difficile was negative, stool for pathogens was negative, influenza is negative but strep group a was positive. Chest x-ray showed left basilar pneumonia and patient was started on Rocephin and Levaquin. Dr. Rolanda Middleton was consulted. Patient has a positive for Rickettsia and was changed over to doxycycline. Patient has already had a full treatment with doxycycline. His platelet count has improved to 75. His sepsis completely resolved and IV fluids were discontinued. Patient had a urine for Cadmium which was elevated but urine for arsenic was less than 15, urine for lead is less than 1 and urine for mercury less than 1. Patient has CHRISTINA and sleeps on cpap at night. 24 hour collection for cadmium and will be sent out today. If positive he will need the water department to check his home water supply for contamination. Danica will need to follow up on this lab. His strep pharyngitis and candidiasis of his mouth has resolved. No further antibiotics for now. His blood sugars were high on admission and even though he was on prednisone, I am suspicious of diabetes and will check a hemoglobin A1c. - Time spent with patient Time with patient DS: Greater than 30 minutes (50 min) Discharge Plan - Discharge Data Disposition: Disch/Xfer-Ip Rehab Fac Condition at Discharge: Stable Discharge Diet: diabetic diet Activity: resume usual activities as tolerated Hygiene: no restrictions Weight Bearing at Discharge: full weight bearing - Discharge Medications New Acetaminophen Tab [Tylenol Tab] 650 mg PO Q4H PRN #0 tablet PRN Reason: Fever, Headache, Mild Pain Ascorbic Acid Tab [Vitamin C Tab] 1,000 mg PO BID tablet Pantoprazole Tab [Protonix Tab] 40 mg PO DAILY tablet Phenol 1.4% Throat [place] [Chloraseptic [place]] 5 spray PO Q2H PRN #0 bottle PRN Reason: Sore Throat predniSONE TAB [PredniSONE] 20 mg PO DAILY #30 tablet Diltiazem Tab [Cardizem Tab] 30 mg PO TID tablet Continue Tamsulosin HCl 1 capsule PO DAILY Discontinued Sildenafil Citrate [Viagra] 1 tablet PO DIRECTED Hyoscyamine Sulfate [Oscimin] 1 tablet SL DIRECTED - Follow Up or Referral - Forms/Instructions Additional Discharge Instructions: cpap at night. Follow up on 24 hour urine collection for cadmium which was sent out today 08/09/16. Hemoglobin A1c pending Exam - Constitutional Vitals: Period Temp Pulse Resp BP Sys/Hester Pulse Ox Last 24 Hr 97.4 F-98.4 F 62-77 16-20 114-142/55-85 94-99 General appearance: normal weight, no acute distress - Respiratory Respiratory exam: Present: clear to auscultation bilaterally. Absent: rhonchi, wheezes - Cardiovascular Cardiovascular exam: Present: regular rate and rhythm. Absent: systolic murmur - GI/Abdominal GI/Abdominal exam: Present: normal bowel sounds, soft. Absent: tenderness, rebound - Extremities Exam Extremities exam: Absent: normal inspection, normal capillary refill - Neurological Exam Neurological exam: Present: alert, oriented X3 Discharge Results Procedures and tests throughout hospitalization: Pending Orders 08/02/16 11:53 Ehrlichia chaff Ab, IgG,IgM Stat Rickettsial Disease Panel Stat Labs on day of discharge: Labs from last 24 hours 08/09/16 08/09/16 08/09/16 08:50 08:43 08:43 WBC RBC Hgb Hct MCV MCH MCHC RDW Plt Count MPV Neut % (Auto) Lymph % (Auto) [place] % (Auto) Eos % (Auto) Baso % (Auto) Neut # (Auto) Lymph # (Auto) [place] # (Auto) Eos # (Auto) Baso # (Auto) Total Counted Immature Gran % Nucleated RBC % Immature Gran # Segmented Neutrophils Band Neutrophils Lymphocytes Monocytes Nucleated RBCs Nucleated RBCs # Platelet Estimate Hypochromasia Microcytosis Absolute Retic 0.1 Percent Retic 2.3 H Retic Hgb Equivalent 37.3 H Haptoglobin 93.0 Sodium Potassium Chloride Carbon Dioxide Anion Gap BUN Creatinine GFR Calculation BUN/Creatinine Ratio Glucose Calculated Osmolality Calcium Phosphorus Total Bilirubin 0.70 Direct Bilirubin 0.30 H Indirect Bilirubin 0.4 AST 29 ALT 85 H Alkaline Phosphatase 92 Total Protein 4.9 L Albumin 2.4 L 08/09/16 08/09/16 04:56 04:56 WBC 5.9 RBC 3.30 L Hgb 10.4 L Hct 29.8 L MCV 90.3 MCH 32 MCHC 34.9 RDW 13.7 Plt Count 75 L MPV 10.4 Neut % (Auto) 54.0 Lymph % (Auto) 27.5 [place] % (Auto) 7.5 Eos % (Auto) 0.0 Baso % (Auto) 0.2 Neut # (Auto) 3.2 Lymph # (Auto) 1.6 [place] # (Auto) 0.4 Eos # (Auto) 0.0 Baso # (Auto) 0.0 Total Counted 100 Immature Gran % 10.8 Nucleated RBC % 0.8 Immature Gran # 0.64 Segmented Neutrophils 62 Band Neutrophils 2 Lymphocytes 25 Monocytes 11 Nucleated RBCs 1 Nucleated RBCs # 0.05 Platelet Estimate Decreased Hypochromasia 1+ Microcytosis Slight Absolute Retic Percent Retic Retic Hgb Equivalent Haptoglobin Sodium 140 Potassium 3.8 Chloride 101 Carbon Dioxide 28 Anion Gap 14.8 BUN 24 H Creatinine 1.00 GFR Calculation 76 BUN/Creatinine Ratio 24.00 H Glucose 215 H Calculated Osmolality 288.4 Calcium 7.6 L Phosphorus 2.9 Total Bilirubin Direct Bilirubin Indirect Bilirubin AST ALT Alkaline Phosphatase Total Protein Albumin 2.1 L DS: Provider Date of admission: 07/29/16 17:54 Primary care physician: . No PCP Attending physician on admission: Devendra Parra Consults: 07/30/16 02:41 Consult to Pharmacy [CONS] Routine Reason for Pharmacy Consult: Adjust Meds Renal Funct Consult to Physician [CONS] Routine Comment: Patient of yours Consulting Provider: Harpal Luna Date Notified: 07/30/16 Time Notified: 15:24 Consult Notification Comment: left message 07/30/16 15:50 Consult to Physician [CONS] Routine Comment: thrombocytopenia Consulting Provider: Tino Oviedo Consulting Provider Notified: Yes Consult to Specialist Group: Hematology When should Consulting Provider be notified: Now Person Notified: Dr. Oviedo Date Notified: 07/31/16 Time Notified: 08:05 Consult Notification Comment: 07/30/16 16:39 Consult to Dietitian [CONS] Routine Reason for Dietitian: Other Consult Comment: Admission Assessment 08/02/16 09:20 Consult to Physician [CONS] Routine Comment: thrombocytopenia Consulting Provider: Martinez Pastor 08/02/16 09:45 Consult to Physician [CONS] Routine Comment: Consulting Provider: 08/02/16 09:48 Consult to Physician [CONS] Routine Comment: sepsis, Consulting Provider: Eli Morales 08/02/16 15:29 Consult to Physician [CONS] Routine Comment: new onset afib, sepsis, pna Consulting Provider: Consult to Specialist Group: Cardiology 08/04/16 07:50 Consult to Physician [CONS] Routine Comment: doctor superintendent communications. Plz evaluate electrolytes Consulting Provider: SYDNEE Nephrology Consulting Provider Notified: No When should Consulting Provider be notified: Now 08/04/16 16:41 Consult to Physical Therapy [CONS] Routine Reason for Physical Therapy: Evaluate and Treat OT [Consult to Occupational Therapy] [CONS] Routine Reason for Occupational Therapy: Evaluate and Treat 08/05/16 18:15 Consult to Physician [CONS] Routine Comment: abnormal LFTs Consulting Provider: Sivakumar Moya Consulting Provider Notified: No When should Consulting Provider be notified: In am Consult to Specialist Group: Gastroenterology Person Notified: DEBBIE Date Notified: 08/06/16 Time Notified: 08:45 Discharging clinician: Crystal Quezada MD
[2016-08-09] MEDS: DOXYCYCLINE HYCLATE 100 MG CAPSULE PO SCH (10:49)
[2016-08-09] MEDS: predniSONE 20 MG TABLET PO SCH (10:49)
[2016-08-09] MEDS: TAMSULOSIN 0.4 MG CAPSULE PO SCH (10:49)
[2016-08-09] MEDS: DILTIAZEM 30 MG TABLET PO SCH (10:49)
[2016-08-09] MEDS: PANTOPRAZOLE 40 MG TABLET PO SCH (10:49)
[2016-08-09] MEDS: ASCORBIC ACID 500 MG TABLET PO SCH (10:50)
[2016-08-09] MEDS: CLOTRIMAZOLE 10 MG TROCHE PO SCH (10:50)
--- NOTE | 2016-08-09 10:58 | Infectious Disease Progress ---
Assessment and Plan (1) Candidiasis of mouth Status: Acute Assessment and plan: resolved Current Visit: Yes (2) Fever Status: Deleted Assessment and plan: We never identified especially with specific cause. Rickettsial serology show evidence of past infection with our RMSF IgG of 1-64. The Ehrlichia serology was negative. This may have been nonspecific viral infection versus drug reaction. The patient has completed a week's course of doxycycline and given the absence of fever for about 6 days he does need to continue this antibiotic any longer. When he goes home today no need for doxycycline prescription. Current Visit: Yes (3) Hypotension Status: Acute Assessment and plan: Probably related to sepsis, resolved. Current Visit: Yes (4) Sepsis Status: Acute Assessment and plan: No obvious source; got empiric therapy for rickettsial illness versus ehrlichiosis. Serologies were negative. Doxycycline being discontinued. Current Visit: Yes (5) Strep pharyngitis Status: Resolved Assessment and plan: Treated on admission. Droplet precautions no longer indicated. Current Visit: Yes (6) Thrombocytopenia Status: Acute Current Visit: Yes (7) Toxoplasma chorioretinitis, left Status: Acute Assessment and plan: Inactive per ophthalmology; treatment not currently indicated. Current Visit: Yes Infectious Disease - PN: Subj Interval history: Patient steadily improving, he was met walking about the card with his walker and was doing well. No fever over the weekend, appetite good, no nausea vomiting or diarrhea on the antibiotic. No significant cough or breathing difficulties. Infectious Disease Exam (PN) - Constitutional Vitals: Temp Pulse Resp BP Pulse Ox 97.4 F L 62 20 142/85 98 08/09/16 08:00 08/09/16 08:00 08/09/16 08:00 08/09/16 08:00 08/09/16 08:00 General appearance: normal weight, no acute distress Exam: General appearance: Alert and comfortable, conversant - Eye Eye exam: Present: EOMI. no icterus Pupils: Present: VERNA - ENT ENT exam: No oropharyngeal exudates - Respiratory Respiratory exam: Breath sounds clear - Cardiovascular Cardiovascular exam: regular rate and rhythm, no murmurs - GI/Abdominal GI/Abdominal exam: normal bowel sounds, soft, non-tender, no organomegaly or mass - Extremities Exam Extremities exam: Still has bilateral leg edema, right greater than left - Skin Skin exam: no rash Results - Labs CBC & BMP: 08/09/16 04:56 08/09/16 04:56 Lab Results: I have reviewed the past 24 hour labs Quality Measures - VTE Contraindication to Pharmacological VTE Prophylaxis: Thrombocytopenia
--- NOTE | 2016-08-09 12:26 | Nephrology Progress Note ---
Nephrology - PN: Subj Interval history: No new symptoms today. Exam (PN)-Nephrology - Vital Signs Vital signs: Period Temp Pulse Resp BP Sys/Hester Pulse Ox Last 24 Hr 97.4 F-98.4 F 62-77 16-20 114-142/55-85 94-99 Exam: ENT: Normal Cardiovascular: Regular rate and rhythm. No murmur rub or gallop Lungs: Clear Extremities: No edema - Lab 08/09/16 04:56 08/09/16 04:56 Most recent lab results Calcium 7.6 MG/DL (8.5-10.1) L 08/09/16 04:56 Phosphorus 2.9 MG/DL (2.5-4.9) 08/09/16 04:56 Magnesium 2.7 MG/DL (1.8-2.4) H 08/04/16 04:56 Assessment and Plan (1) Metabolic acidosis Status: Acute Assessment and plan: 85-year-old man admitted with: * Toxoplasmosis chorioretinitis. Followed by ophthalmology * Febrile illness. Resolved * Metabolic acidosis. Resolved * Hypoalbuminemia. This accounts for his pleural effusions and lower extremity edema. Urine protein to creatinine ratio 0.9. He is not nephrotic. * Urinary hesitancy and nocturia. Renal ultrasound normal * A. fib with RVR. Now in NSR after treatment * Thrombocytopenia Current Visit: Yes (2) Pleural effusion Status: Acute Current Visit: Yes (3) Atrial fibrillation with rapid ventricular response Status: Acute Current Visit: Yes (4) Thrombocytopenia Status: Acute Current Visit: Yes (5) Toxoplasma chorioretinitis, left Status: Acute Current Visit: Yes (6) Strep pharyngitis Status: Resolved Current Visit: Yes
[2016-08-09 12:42] VITALS: BP 139/74
== END 2016-08-09 13:45 | disposition swing bed (61) | DRG 871 ==
LOC: EDBD → EDUNIT# → N.ED 17:21 → N.EDINP 17:54 → SUATTDRO 17:54 → N.CC 07-30 14:50 → N.TELEN 08-03 16:07
PROVIDERS: ATTEND Internal Medicine